=== PATIENT | female | born 1950 | race Caucasian/White ===

== ENCOUNTER → 2018-04-17 10:03 | Outpatient (CLI) | payer MEDICARE, OTHER, SELFPAY ==
--- NOTE | 2018-04-17 | DI.MG.S_ITS ---
BILATERAL DIGITAL SCREENING MAMMOGRAM 3D/2D WITH CAD: 04/17/2018 CLINICAL: Routine screening. Family history of breast cancer. Comparison is made to exams dated: 03/30/2017 mammogram, 02/26/2016 mammogram, and 01/23/2015 mammogram - [facility]. There are scattered fibroglandular elements in both breasts. Current study was also evaluated with a Computer Aided Detection (CAD) system. No significant masses, calcifications, or other findings are seen in either breast. There has been no significant interval change. IMPRESSION: NEGATIVE There is no mammographic evidence of malignancy. A 1 year screening mammogram is recommended. This exam was interpreted at Station ID: [id number]. NOTE: For mammograms, a report in lay terms will be sent to the patient. Approximately 15% of breast malignancies will not be visualized mammographically. In the management of a palpable breast mass, a negative mammogram must not discourage biopsy of a clinically suspicious lesion. Electronically Signed By: Lexis sousa/comfort:04/20/2018 07:16:10 letter sent: Normal Exam ACR BI-RADS Category 1: Negative [id number]
== END ==
PROVIDERS: Family Provider Nurse Practitioner; PCP Nurse Practitioner; Visit Provider Nurse Practitioner
DX: Z12.31 Encounter for screening mammogram for malignant neoplasm of breast (principal); Z80.3 Family history of malignant neoplasm of breast
CPT/HCPCS: 77063; 77067

== ENCOUNTER 2019-01-20 11:30 | Observation (INO) | payer MEDICARE, OTHER, SELFPAY ==
[2019-01-04 09:31] VITALS: BMI 44.7
[2019-01-19] VITALS (15 sets, daily range): BP systolic 105–156; BP diastolic 37–90; PULSE 57–70; RESP 13–20; TEMP 35.9–36.8; O2SAT 89–98; BMI 45.1
--- NOTE | 2019-01-19 06:00 | DI.RAD.S_ITS ---
PROCEDURE: XR KNEE RT 1TO2V INDICATIONS: total right knee TECHNIQUE: 2 view(s) of the knee acquired. COMPARISON: [facility], , XR KNEE OUTSIDE FILMS, 03/12/2007, 9:20. FINDINGS: Bones: Patient is status post knee joint arthroplasty. Hardware components are in expected positions. Visualized bony structures are intact. Please note that the lateral view is suboptimal to evaluate the positioning of the prosthetic components of the distal femur and proximal tibia. Soft tissues: Overlying postoperative changes are noted. Expected post surgical changes within the overlying soft tissues are present there is a soft tissue air, edema, and fluid. Skin julee are seen along the anterior margin of the knee. No unexpected radiopaque foreign bodies are apparent. IMPRESSION: Expected postsurgical changes related to a total right knee arthroplasty. Dictated by: Sudhir Lemus M.D. on 01/19/2019 at 9:46 Approved by: Sudhir Lemus M.D. on 01/19/2019 at 9:47
[2019-01-19] MEDS: ACETAMINOPHEN 325 MG TABLET 975 MG PO ×3 (07:16→20:23)
[2019-01-19] MEDS: LACTATED RINGERS 1,000 ML 42 ML IV ×2 (07:16→10:01)
[2019-01-19] MEDS: PREGABALIN 75 MG CAPSULE PO (07:17)
--- NOTE | 2019-01-19 07:18 | SUR.PREOP ---
pt has allergy to sulfa therefore celebrex not given
--- NOTE | 2019-01-19 07:45 | PM.PREOP ---
Pre-operative Note Interval Note History & Physical reviewed/Exam performed by Physician: Yes Changes to H&P: No
--- NOTE | 2019-01-19 07:48 | P.OP_ITS ---
Operative Date/Time/Diagnoses Date of procedure: 01/19/19 Time of procedure: 10:06 Pre-op diagnosis: Right knee osteoarthritis Morbid obesity Post-op diagnosis: same Procedure & Clinicians Procedure: Right total knee arthroplasty Same procedure as scheduled: Yes Indications: The patient presents today for total knee arthroplasty after failu re of conservative treatment. The nature of the procedure including the risks and benefits, alternatives, postoperative course and expected outcome were discussed and all questions answered. Consent was obtained. Operative site confirmed and marked. Surgeon: Daniel Norton Surveying Crew Rodman: Herson Chawla Anesthesia Type: General and Local Operative Notes Findings: Severe osteoarthritis with varus alignment. Closure Type: primary Specimen(s): none sent Prosthetic devices, grafts, tissues, transplants, or devices: Corea and Nephew Roxanne BCS: 6 femoral component, 5 tibial component, 9 mm BCS polyethylene tray and 35 x 9 mm round patella Applied: implant(s) Estimated Blood Loss (mL): 100 Blood products transfused: none Tourniquet time (min): 5 Procedure in detail: The patient was taken to the operative suite and placed under general anesthesia. The patient was given prophylactic antibiotics prior to surgery. The patient was also given tranexamic acid, 1 g, just prior to surgery for postoperative hemostasis. The lateral knee was prepped and the joint injected with 20 mL of 1% Lidocaine with epinephrine. The knee was then prepped and draped in usual sterile fashion. A tourniquet could not be placed due to the size of the patient's leg. A 15 cm anterior incision was made. Next a medial trivector arthrotomy was made. The extensor mechanism was marked to ensure accurate repair. Initial exposing dissection was carried out medially and laterally. The knee was then extended and the patellar thickness was measured and a cut made removing approximately 9 mm of bone. The patella was then sized and drilled. Some excess lateral bone was excised and the patellofemoral ligament released. The knee was then flexed and the intramedullary femoral guide keerthi placed. The distal femoral cut was made in 6? of valgus at the +0 position. The femoral size was measured and the appropriate cutting block was then placed and the anterior, posterior and chamfer cuts made. The extra medullary tibial alignment keerthi was then placed along the anatomic axis of the tibia approximating the normal slope. The guide was set to remove approximately 10 mm from the less affected lateral side. The proximal tibial cut was then made with an oscillating saw. All meniscus and bony debris was then removed. Flexion extension gaps were checked. The patient did have some medial tightness which was corrected with removal of extensive osteophytes, routine releases and some percutaneous release of the MCL with an 18 gauge needle. The soft tissues were then injected with a combination of 20 mL of half percent Marcaine with epinephrine and 20 mL of Exparel. The trial components were then placed. The knee went into full extension and flexion beyond 120?. There was good medial- lateral balance throughout motion. Patellar tracking was excellent. The trial components were removed and the knee was cleansed with Pulsavac irrigation and dried. We attempted to put a sterile tourniquet on. However there was more bleeding with the tourniquet so this was abandoned after approximately 5 min. The final components were cemented in with high viscosity vacuum mixed bone cement with antibiotics. The knee was held in extension and the patellar clamp until the cement had fully cured. The knee was irrigated and inspected for any further debris. The knee was then irrigated with dilute Betadine solution. The extensor mechanism was closed with 5 interrupted #1 Vicryl sutures in 90 degrees of flexion. The joint was then injected with a combination of 1 g of tranexamic acid and 20 mL of quarter percent Marcaine with epinephrine. The subcutaneous tissue was closed with 2-0 Vicryl. The skin was closed with julee and surgical adhesive. An Aquacell dressing and Kelby wrap were then applied. The patient tolerated the procedure well and was returned to recovery room in good condition. Complications: none Condition: stable Disposition: PACU Plan for aftercare: [facility] protocol for total knee arthroplasty.
[2019-01-19] MEDS: CEFAZOLIN 2 GM/100 ML FROZ.PIGGY IV (07:49)
[2019-01-19] MEDS: LIDOCAINE 1% W/EPI INJ 20 ML INJ (08:10)
[2019-01-19] MEDS: TRANEXAMIC ACID 1,000 MG VIAL 1000 MG INJ (08:13)
--- NOTE | 2019-01-19 08:29 | SUR.OPER ---
Supine on padded OR bed. Pillow under head, arms secured on padded armboards <90 degree abduction. Safety belt across torso. Non-operative leg secured with tape over blanket over lower leg. Operative leg secured in DeMayo/Trey positioner. Foam padded brace at thigh of operative leg.
[2019-01-19] MEDS: BUPIVACAINE 0.5% W/ EPI (PF) 20 ML, BUPIVACAINE LIPOSOME 266 MG, SODIUM CHLORIDE 0.9% 2... INJ (08:39)
[2019-01-19] MEDS: BUPIVACAINE 0.5% W/ EPI (PF) 10 ML, TRANEXAMIC ACID 1,000 MG, SODIUM CHLORIDE 0.9% 20 ML INJ (08:42)
[2019-01-19] MEDS: POVIDONE-IODINE 15 ML, SODIUM CHLORIDE 0.9% 250 ML TOP (08:43)
[2019-01-19] MEDS: LACTATED RINGERS 1,000 ML 125 ML IV ×2 (12:00→20:26)
[2019-01-19] MEDS: OXYCODONE IR 5 MG TABLET PO ×4 (14:07→22:54)
--- NOTE | 2019-01-19 14:32 | CM.MNRNOTE ---
Pt admitted with R.total knee. Sita dressing is present to r.knee, Pt has feeling down to her feet VSS. Last bp 100s/37. Will recheck soon. Pt is asymptomatic and denies dizziness. She has LR infusing through her iv and is tolerating this well. BS cta and pts o2 sat is 91-94%. PPX2 and pt visiting with her daughter and son in law.
--- NOTE | 2019-01-19 15:15 | PT.IIE ---
Current Diagnoses Bilateral primary osteoarthritis of knee (01/19/19) Surgery Performed Operation Date: 01/19/19 07:45 Actual Procedures p Total Knee Arthroplasty(Right) - Daniel Norton MD Surgical History (Last Updated 01/04/19 @ 10:18 by Miracle Hopkins RN) History of arthroscopy of both knees (Acute) Hx of bladder repair surgery (Acute) Hx of dilation and curettage (Acute) Hx of tubal ligation (Acute) Medical History (Last Updated 01/04/19 @ 10:21 by Miracle Hopkins RN) Cellulitis (Acute) Collar bone fracture (Acute ~1971) Depression (Acute) Edema (Acute) Fibromyalgia (Acute) GERD (gastroesophageal reflux disease) (Acute) H/O: hysterectomy (Acute) HTN (hypertension) (Acute) Herniated intervertebral disc of lumbar spine (Acute) Hyperlipidemia (Acute) Hypothyroidism (Acute) BLANCA on CPAP (Acute) Osteoarthritis (Acute) Pneumonia (Acute) Pre-diabetes (Acute) Sciatica (Acute) Physical Therapy Inpatient Evaluation/Re-Eval M1 PT/OT-IP Prior Functional Status Start: 01/19/19 16:18 Freq: NEEDED Status: Active Protocol: Document 01/19/19 15:15 AB (Rec: 01/19/19 16:40 AB [id number]) Medical Review Prior Functional Status Medical History Reviewed Yes Communication able to make needs known Mobility and Gait pt stated that she is independent with all mobilities and ambulation without AD indoors but uses SPC for outdoor ambulation Social History Household Members none Living Arrangements House Number of Floors (Floors) One Floor Number of Stairs To Enter/Railing? ramp to enter Home Environment High Toilet Walk in Shower Home Equipment Front Wheel Walker Four Wheel Walker Straight Cane Hand Held Shower Canine Enforcement Officer Grab Bars Near Toilet Grab Bars In Shower Employment Status Retired Additional Social History Comment pt able to drive M2 PT-IP Current Condition Start: 01/19/19 16:18 Freq: NEEDED Status: Active Protocol: Document 01/19/19 15:15 AB (Rec: 01/19/19 16:40 AB [id number]) Physical Therapy Current Condition Current Condition Evaluation Date 01/19/19 Treatment Diagnosis s/p R TKA; difficulty in walking Onset Date 01/19/19 Weight Bearing Status Weight Bearing Status Weight Bear as Tolerated M3 PT-IP Subjective Start: 01/19/19 16:18 Freq: NEEDED Status: Active Protocol: Document 01/19/19 15:15 AB (Rec: 01/19/19 16:40 AB [id number]) Subjective Physical Therapy Visit Type Type Initial Evaluation Visit Start Time 15:15 Visit Stop Time 15:56 Total Visit Minutes 41 Number of SURVEILLANCE AGENT Visits 0 Physical Therapy Visit Comments Patient Comments pt agreeable to do PT Therapy Pain Assessment Pain When Pain Assessed At Rest Pain Present Pain Present Pain Reported Location Right Knee Intensity 4 Scale Used Numeric (1 - 10) Pain Management Techniques Apply Cold Re-positioning Timing of Activity with Medications M4 PT-IP Mobility and Gait Start: 01/19/19 16:18 Freq: NEEDED Status: Active Protocol: Document 01/19/19 15:15 AB (Rec: 01/19/19 16:40 AB [id number]) PT-Bed Mobility Assessment Supine to Sit Supine to Sit Standby Assistance Sit to Supine Sit to Supine Minimal Assistance PT-Transfer Assessment Sit to and From Stand Sit to and from Stand Moderate Assistance 1 Person Assistance Equipment Transfer Assistive Device Gait Belt Front Wheeled Walker Orthotic/Prosthetic Devices or Brace: No Comments Mobility Comments BP supine: 141/72 DE 58 O2 sat 94%. pt completed supine to sit SBA. c/o dizziness with sitting but stated it got better after resting. BP: 125 /71 DE 68. pt completed sit to stand with 4 attempts mod A and cues. pt wanted to put her underwear on and assisted requring CGA to maintain standing balance using FWW for assist . pt c/o dizziness with standing. attemped to get BP but unable. instructed pt to take side steps towards head of bed and completed min A ~ 4 steps using FWW. pt completed sit to supine min A to assist with R LE elevation. positioned pt in bed. ice pack provided. call light and table placed within reach. Gait Assessment Gait Gait Assistance Required: Minimum Assistance Distance (Feet) 2 Able to Maintain Weight Bearing Status Yes During Gait Assistive Devices Assistive Device Gait Belt Front Wheeled Walker Orthotic/Prosthetic Devices or Brace: No Gait Deviations General Gait Pattern Antalgic Factors Limiting Gait Function Factors Limiting Gait Function Decreased Activity Tolerance Decreased Strength Limited Range of Motion Pain Poor Balance Comments Gait Comments able to take side steps towards HOB using FWW min A and cues PT-Balance Assessment Sitting Balance and Reactions Static Sitting Balance Ability Good Dynamic Sitting Balance Ability Good Standing Balance and Reactions Static Standing Balance Ability Fair Dynamic Standing Balance Ability Fair Device Used FWW M5 PT-IP Objective Assessments Start: 01/19/19 16:18 Freq: NEEDED Status: Active Protocol: Document 01/19/19 15:15 AB (Rec: 01/19/19 16:40 AB [id number]) Orientation Orientation/Cognition Level of Alertness Alert Orientation Name Age Birthday Month Date Year Day of Week Place Situation Safety Awareness Understands Safety Issues Memory Description No Deficits Noted Gross Range of Motion Lower Extremity ROM Assessment Bilaterally Impaired Strength Lower Extremity Strength Assessment Bilaterally Impaired Comments Strength Comments LLE: 4-/5 RLE: 4-/5 Coordination Assessment Gross Coordination Gross Coordination WNL Muscle Tone Muscle Tone WNL Yes M6 PT-IP Treatment Start: 01/19/19 16:18 Freq: NEEDED Status: Active Protocol: Document 01/19/19 15:15 AB (Rec: 01/19/19 16:40 AB [id number]) Physical Therapy Treatment Exercises Exercises Heel Slides Education Education Provided Precautions Weight Bearing Status Post-Op Packet Safety M7 PT-IP Assessment and Plan Start: 01/19/19 16:18 Freq: NEEDED Status: Active Protocol: Document 01/19/19 15:15 AB (Rec: 01/19/19 16:40 AB [id number]) PT Summary Assessment and Plan Potential Rehabilitation Potential Good Status of Condition at Evaluation Evolving Summary Impairments Pain ROM Strength Balance Coordination Sensation Tone Cognition Bed Mobility Transfers Gait Activity Tolerance Assessment Summary Pt unable to tolerate much activity today with c/o dizziness. will continue to assess mobiltiy and progress. Goals Bed Mobility Goal Standby Assistance Transfer Goal Standby Assistance Front Wheeled Walker Gait Goal Standby Assistance Front Wheel Walker Gait Distance 100 Days to Meet Goals 5 Frequency of Treatment Frequency Of Treatment Twice a Day Treatment Plan Physical Therapy Treatment Plan Bed Mobility Training Transfer Training Gait Training Therapeutic Exercise Balance Retraining Post Op Education Discharge Planning Hot or Cold Pack Neuromuscular Re-ed Coordination Retraining Manual Therapy Other Recommendations and Next Treatment ambulation Focus Recommendations To Nursing Amount of Assist Needed 1 Person Assist Discharge Recommendations PT Discharge Recommendations Home with Assistance Outpatient PT
[2019-01-19] MEDS: CEFAZOLIN VIAL 3 GM in SODIUM CHLORIDE 0.9% 100 ML 200 ML IV (17:16)
[2019-01-19] MEDS: NAPROXEN 250 MG TABLET 500 MG PO (20:23)
[2019-01-19] MEDS: ATORVASTATIN 10 MG TABLET PO (20:23)
[2019-01-19] MEDS: ASPIRIN EC 81 MG TABLET PO (20:23)
[2019-01-19] MEDS: PANTOPRAZOLE 20 MG TABLET PO (20:23)
[2019-01-20] MEDS: CEFAZOLIN VIAL 3 GM in SODIUM CHLORIDE 0.9% 100 ML 200 ML IV (00:26)
--- NOTE | 2019-01-20 01:54 | PC.NURSE ---
Addendum entered by Digna De Los Santos R.N. 01/20/19 07:14: Pt up to BSC at approx 0545. 2 PA w/fww and gait belt. PO analgesics effective overnight. No nausea. CPOX on all night. Bed alarm on for safety. Original Note: Assumed care of pt at 2300 on 01/20/19. Pt resting in bed during bedside hand-off. Personal CPAP on RA. Pt denies nausea at this time. Reports PO analgesics have been effective. IVF to PIV per orders. Sita drsg to R. Knee with dione wrap c/d/i. Tubing to Sita pinched orange light flashing on cartridge; straightened tube then green ok light starting flashing. Pt aware to keep tubing free of kinks. PPP. CMS+. Able to wiggle toes, denies numbness. Calf scd's on. Bed alarm on. Call light within reach.
[2019-01-20] MEDS: OXYCODONE IR 5 MG TABLET PO ×4 (03:05→12:05)
[2019-01-20 03:30] VITALS: BP 118/58; PULSE 65; RESP 20; TEMP 36.8; O2SAT 96
[2019-01-20] MEDS: PANTOPRAZOLE 20 MG TABLET PO (06:03)
[2019-01-20] MEDS: LACTATED RINGERS 1,000 ML 125 ML IV (06:03)
[2019-01-20] MEDS: LEVOTHYROXINE 100 MCG TABLET 200 MCG PO (06:03)
--- NOTE | 2019-01-20 07:53 | P.DS_ITS ---
History of Present Illness Date Patient Seen: 01/20/19 Time Patient Seen: 07:49 Chief complaint: right knee [id number] Narrative: Hospital day 2, postop day 1 following right total knee arthroplasty by Dr. Norton. Patient remained stable postoperatively. She did not get much rest and during the night. Pain controlled with oxycodone. Does have a layla dressing in place. Patient is desiring to go home today if possible. She does have physical therapy scheduled at [facility]. PT states that she is okay for home. Discharge Providers Date of admission: 01/19/19 06:10 Discharge Date: 01/20/19 Primary care physician: GUSTAVO Wood Consults: 01/19/19 11:53 Consult to Discharge Planning Routine Comment: Consult to Physical Therapy Evaluate & Treat Comment: Physician Instructions: postop TKA protocol Consult to Respiratory Therapy Evaluate & Treat Comment: Physician Instructions: Evaluate and treat Discharge provider: Ubaldo Abernathy PA-C Summary Discharge Diagnosis: Status post right total knee arthroplasty Hospital Course: Patient brought to hospital on 01/19/2019 for above-noted surgery. She remained stable postoperatively. Progressed with physical therapy. Ready for discharge home on postop day 1. She has a [facility] path patient. Status at Discharge Cognitive/behavioral status at discharge: Alert oriented no acute distress. Functional status at discharge: uses cane/walker Overall status at discharge: patient is progressing back to baseline Time Spent with Patient Less than 30 minutes Exam Vital Signs (past 8 hours): - 01/20/19 03:30 Temperature 98.2 F Pulse Rate 65 Respiratory Rate 20 Blood Pressure 118/58 L Pulse Oximetry 96 Oxygen Delivery Method Room Air Narrative Exam Narrative: Right leg. Layla dressing intact and good vacuum. No signs of drainage or inflammation. No calf pain or swelling. Pulses symmetrical. Objective Labs Result Diagrams: 01/20/19 06:25 Labs: Laboratory Results - last 24 hr 01/20/19 06:25 Hgb 11.0 L Hct 33.0 L Discharge Plan Discharge Plan Patient Disposition: Home Discharge comment: Discharged home today after cleared by physical therapy. If she is not cleared by PT will have her stay tonight and discharged tomorrow. She is scheduled to go to [place] [facility]. Discharge Med Rec/Prescriptions Prescriptions: New acetaminophen 325 mg Tablet 975 mg PO TID Qty: 30 RF: 0 aspirin 81 mg Tablet,Delayed Release (Dr/Ec) 81 mg PO BID Qty: 60 RF: 0 oxycodone 5 mg Tablet 5 mg PO Q3HR PRN (Reason: Pain, Moderate (4-6)) Qty: 30 RF: 0 Continued naproxen sodium [Aleve] 220 MG tablet 440 mg PO BID Qty: 0 RF: 0 multivitamin Tablet 1 cap PO QDAY Qty: 0 RF: 0 furosemide 40 mg Tablet 40 mg PO DAILY RF: 0 oxybutynin chloride 15 mg Tablet Extended Release 24hr 15 mg PO QAM RF: 0 atorvastatin 10 mg Tablet 10 mg PO BEDTIME RF: 0 sertraline 100 mg Tablet 200 mg PO QAM RF: 0 amlodipine 10 mg Tablet 10 mg PO DAILY RF: 0 levothyroxine 200 mcg Tablet 200 mcg PO DAILY RF: 0 bupropion HCl 150 mg Tablet Extended Release 24 Hr 150 mg PO QAM RF: 0 lansoprazole 15 mg Capsule,Delayed Release(Dr/Ec) 15 mg PO BID RF: 0 Discontinued aspirin 81 mg Tablet,Delayed Release (Dr/Ec) 81 mg PO QPM Qty: 0 RF: 0 Follow up/Referrals: Yasmine Shore ARNP [Primary Care Provider] - Provider Discharge Instructions Diet: Diet as Tolerated Activity: Ambulate as tolerated. Use walker as needed. Cold/Heat Therapy: Cold pack to knee as needed. Skin/Wound/Dressing Care Report to your healthcare provider any signs of infection, such as:: chills, fever, night sweats, increased pain, unusual drainage and unusual redness Dressing: Keep layla dressing in place until postop visit. Visit Report/Discharge Packet Instructions: DI for Knee Replacement Discharge Data Primary Care Provider: Yasmine Shore Attending Provider: Daniel Norton Admit Date/Time: 01/19/19 06:10 Quality VTE Deep Vein Thrombosis/Pulmonary Embolism Present on Admission: No
[2019-01-20 08:00] VITALS: BP 115/63; PULSE 79; RESP 18; TEMP 37; O2SAT 92
[2019-01-20] MEDS: SERTRALINE 50 MG TABLET 200 MG PO (08:58)
[2019-01-20] MEDS: OXYBUTYNIN 5 MG ER TAB 15 MG PO (08:59)
[2019-01-20] MEDS: ACETAMINOPHEN 325 MG TABLET 975 MG PO (09:00)
[2019-01-20] MEDS: NAPROXEN 250 MG TABLET 500 MG PO (09:00)
[2019-01-20] MEDS: AMLODIPINE 5 MG TABLET 10 MG PO (09:01)
[2019-01-20] MEDS: buPROPion XL 150 MG TAB PO (09:01)
[2019-01-20] MEDS: ASPIRIN EC 81 MG TABLET PO (09:01)
[2019-01-20] MEDS: FUROSEMIDE 40 MG TABLET PO (09:03)
--- NOTE | 2019-01-20 09:30 | PT.IPTN ---
Current Diagnoses Bilateral primary osteoarthritis of knee (01/19/19) Surgery Performed Operation Date: 01/19/19 07:45 Actual Procedures p Total Knee Arthroplasty(Right) - Daniel Norton MD Physical Therapy Treatment Note M2 PT-IP Current Condition Start: 01/19/19 16:18 Freq: NEEDED Status: Active Protocol: Document 01/19/19 15:15 AB (Rec: 01/19/19 16:40 AB [id number]) Physical Therapy Current Condition Current Condition Evaluation Date 01/19/19 Treatment Diagnosis s/p R TKA; difficulty in walking Onset Date 01/19/19 Weight Bearing Status Weight Bearing Status Weight Bear as Tolerated M3 PT-IP Subjective Start: 01/19/19 16:18 Freq: NEEDED Status: Active Protocol: Document 01/20/19 09:30 GGD (Rec: 01/20/19 12:22 GGD [id number]) Subjective Physical Therapy Visit Type Type Treatment Note Visit Start Time 09:00 Visit Stop Time 09:30 Total Visit Minutes 30 Number of WELFARE CASE WORKER Visits 1 Physical Therapy Visit Comments Patient Comments Pt states that she having pain . Therapy Pain Assessment Pain When Pain Assessed At Rest Pain Present Pain Present Pain Reported Location Right Knee Intensity 6 Scale Used Numeric (1 - 10) Pain Management Techniques Apply Cold Re-positioning M4 PT-IP Mobility and Gait Start: 01/19/19 16:18 Freq: NEEDED Status: Active Protocol: Document 01/20/19 09:30 GGD (Rec: 01/20/19 12:22 GGD [id number]) PT-Bed Mobility Assessment Supine to Sit Supine to Sit Minimal Assistance Sit to Supine Sit to Supine Minimal Assistance Scooting Scooting to Edge of Bed Standby Assistance PT-Transfer Assessment Sit to and From Stand Sit to and from Stand Minimal Assistance Use of Upper Extremities Equipment Transfer Assistive Device Gait Belt Front Wheeled Walker Orthotic/Prosthetic Devices or Brace: No Transfers Transfer Destination Bed Transfer Ability Level of Assist Minimal Assistance Comments Mobility Comments Min A with right LE. Sit to stand from higher bed. Gait Assessment Gait Gait Assistance Required: Minimum Assistance Distance (Feet) 10 Able to Maintain Weight Bearing Status Yes During Gait Assistive Devices Assistive Device Gait Belt Front Wheeled Walker Orthotic/Prosthetic Devices or Brace: No Gait Deviations General Gait Pattern Antalgic Decreased Stride Length Decreased Feet Clearance Step-to Gait Factors Limiting Gait Function Factors Limiting Gait Function Decreased Activity Tolerance Decreased Strength Limited Range of Motion Pain Poor Balance M5 PT-IP Objective Assessments Start: 01/19/19 16:18 Freq: NEEDED Status: Active Protocol: Document 01/19/19 15:15 AB (Rec: 01/19/19 16:40 AB [id number]) Orientation Orientation/Cognition Level of Alertness Alert Orientation Name Age Birthday Month Date Year Day of Week Place Situation Safety Awareness Understands Safety Issues Memory Description No Deficits Noted Gross Range of Motion Lower Extremity ROM Assessment Bilaterally Impaired Strength Lower Extremity Strength Assessment Bilaterally Impaired Comments Strength Comments LLE: 4-/5 RLE: 4-/5 Coordination Assessment Gross Coordination Gross Coordination WNL Muscle Tone Muscle Tone WNL Yes M6 PT-IP Treatment Start: 01/19/19 16:18 Freq: NEEDED Status: Active Protocol: Document 01/20/19 09:30 GGD (Rec: 01/20/19 12:22 GGD [id number]) Physical Therapy Treatment Exercises Exercises Ankle Pumps Quad Sets Heel Slides Seated Knee Flexion/Extension M7 PT-IP Assessment and Plan Start: 01/19/19 16:18 Freq: NEEDED Status: Active Protocol: Document 01/20/19 09:30 GGD (Rec: 01/20/19 12:22 GGD [id number]) PT Summary Assessment and Plan Summary Assessment Summary Pt improving slowly with mobility. She was limited by pain. She was able to progress gait with step to gait pattern. Will need to assess pain control with mobility and progress. Frequency of Treatment Frequency Of Treatment Twice a Day Treatment Plan Physical Therapy Treatment Plan Bed Mobility Training Transfer Training Gait Training Therapeutic Exercise Balance Retraining Post Op Education Discharge Planning Hot or Cold Pack Neuromuscular Re-ed Coordination Retraining Manual Therapy Other Recommendations and Next Treatment ambulation Focus Recommendations To Nursing Amount of Assist Needed 1 Person Assist Discharge Recommendations PT Discharge Recommendations Home with Assistance Outpatient PT
--- NOTE | 2019-01-20 13:15 | PT.IPTN ---
Current Diagnoses Bilateral primary osteoarthritis of knee (01/19/19) Surgery Performed Operation Date: 01/19/19 07:45 Actual Procedures p Total Knee Arthroplasty(Right) - Daniel Norton MD Physical Therapy Treatment Note M2 PT-IP Current Condition Start: 01/19/19 16:18 Freq: NEEDED Status: Active Protocol: Document 01/19/19 15:15 AB (Rec: 01/19/19 16:40 AB [id number]) Physical Therapy Current Condition Current Condition Evaluation Date 01/19/19 Treatment Diagnosis s/p R TKA; difficulty in walking Onset Date 01/19/19 Weight Bearing Status Weight Bearing Status Weight Bear as Tolerated M3 PT-IP Subjective Start: 01/19/19 16:18 Freq: NEEDED Status: Active Protocol: Document 01/20/19 13:15 GGD (Rec: 01/20/19 14:21 GGD [email or web address]) Subjective Physical Therapy Visit Type Type Treatment Note Visit Start Time 12:45 Visit Stop Time 13:15 Total Visit Minutes 30 Number of DIABETES EDUCATION COORDINATOR Visits 2 Physical Therapy Visit Comments Patient Comments Pt states that she is feeling better after ice on the knee. Therapy Pain Assessment Pain When Pain Assessed At Rest Pain Present Pain Present Pain Reported Location Right Knee Intensity 4 Scale Used Numeric (1 - 10) Pain Management Techniques Apply Cold Re-positioning Timing of Activity with Medications M4 PT-IP Mobility and Gait Start: 01/19/19 16:18 Freq: NEEDED Status: Active Protocol: Document 01/20/19 13:15 GGD (Rec: 01/20/19 14:21 GGD [email or web address]) PT-Bed Mobility Assessment Supine to Sit Supine to Sit Minimal Assistance Sit to Supine Sit to Supine Minimal Assistance Scooting Scooting to Edge of Bed Standby Assistance PT-Transfer Assessment Sit to and From Stand Sit to and from Stand Contact Guard Assistance 1 Person Assistance Use of Upper Extremities Equipment Transfer Assistive Device Gait Belt Front Wheeled Walker Orthotic/Prosthetic Devices or Brace: No Transfers Transfer Destination Bed Toilet Transfer Ability Level of Assist Minimal Assistance Comments Mobility Comments Min A with right LE. Sit to stand from higher bed. Gait Assessment Gait Gait Assistance Required: Contact Guard Assist Distance (Feet) 20 Assistive Devices Assistive Device Gait Belt Front Wheeled Walker Orthotic/Prosthetic Devices or Brace: No Gait Deviations General Gait Pattern Antalgic Decreased Stride Length Decreased Feet Clearance Step-to Gait Factors Limiting Gait Function Factors Limiting Gait Function Decreased Activity Tolerance Decreased Strength Limited Range of Motion Pain Poor Balance M5 PT-IP Objective Assessments Start: 01/19/19 16:18 Freq: NEEDED Status: Active Protocol: Document 01/19/19 15:15 AB (Rec: 01/19/19 16:40 AB [id number]) Orientation Orientation/Cognition Level of Alertness Alert Orientation Name Age Birthday Month Date Year Day of Week Place Situation Safety Awareness Understands Safety Issues Memory Description No Deficits Noted Gross Range of Motion Lower Extremity ROM Assessment Bilaterally Impaired Strength Lower Extremity Strength Assessment Bilaterally Impaired Comments Strength Comments LLE: 4-/5 RLE: 4-/5 Coordination Assessment Gross Coordination Gross Coordination WNL Muscle Tone Muscle Tone WNL Yes M6 PT-IP Treatment Start: 01/19/19 16:18 Freq: NEEDED Status: Active Protocol: Document 01/20/19 13:15 GGD (Rec: 01/20/19 14:21 GGD [email or web address]) Physical Therapy Treatment Exercises Exercises Ankle Pumps Quad Sets Heel Slides Seated Knee Flexion/Extension Education Education Provided Precautions Safety M7 PT-IP Assessment and Plan Start: 01/19/19 16:18 Freq: NEEDED Status: Active Protocol: Document 01/20/19 13:15 GGD (Rec: 01/20/19 14:21 GGD [email or web address]) PT Summary Assessment and Plan Summary Assessment Summary Pt improving with mobility. She had improved tolerance with weight bearing and gait. She needed assist with LE for bed mobility. Frequency of Treatment Frequency Of Treatment Twice a Day Treatment Plan Physical Therapy Treatment Plan Bed Mobility Training Transfer Training Gait Training Therapeutic Exercise Balance Retraining Post Op Education Discharge Planning Hot or Cold Pack Neuromuscular Re-ed Coordination Retraining Manual Therapy Other Recommendations and Next Treatment ambulation Focus Recommendations To Nursing Amount of Assist Needed 1 Person Assist Discharge Recommendations PT Discharge Recommendations Home with Assistance Outpatient PT
--- NOTE | 2019-01-20 13:38 | PC.NURSE ---
Pt reported pain level 4-5 throughout shift, without much improvement after providing scheduled and PRN pain medication. Provided ice packs and oxycodone dose at 1205, after which patient reported improved pain level of 2. She stated that the ice was seemed to be helping improve frequency and severity of the muscle spasms.
--- NOTE | 2019-01-20 13:57 | PC.NURSE ---
Agree with SN [facility], precepting this shift.
--- NOTE | 2019-01-20 14:24 | CM.DANOTE ---
Addendum entered by Bhargavi Ayala LPN 01/20/19 14:37: Checked in with pt now. Introduced self and role. Pt reports I am going home today after all. I did so much better in the afternoon PT session. She confirms her daughter will be with her. She has her own walker in the room. RN is finalizing the d/c paperwork now and she will go home as planned with OUTPT PT as per her plan. Original Note: Discharge Planning/Care Management DCP: assessment: case received, EMR reviewed and discussed in Team Rounds. Pt is a 68 year old female who admitted yesterday for a scheduled R TKA. Payer: Medicare and [facility] Medical Admission status: confirmed by NICK Abebe: [facility] [place] CANDI Abernathy did see pt very early this morning and wrote a d/c order and summary for today. A review of the d/c summary shows that he did say if pt is not cleared by PT today she will not go home until tomorrow. SLIDE MACHINE TENDER Jo is seeing pt, does note she is having pain and is not yet ready for the home setting. Pt does have OUTPT PT appt set up in [place] and her daughter Natasha Lewis will be staying with her during her recovery. P: will check in with pt and follow prn for any needs that may arise. CM Discharge Assessment Start: 01/20/19 14:23 Freq: Status: Active Protocol: Document 01/20/19 14:23 ITV (Rec: 01/20/19 14:24 ITV [id number]) Discharge Planning Assessment Advance Directives? Yes Advance Directives on File No History Provided By Patient Medical Record Prior Living Arrangements House Household Members none Whiteboard Updated in Patient Room with Yes name and ext. # of Music Store Manager Review Status In Process Next Review Type Continued Stay Review Pre-Anesthesia Assessment Start: 01/04/19 09:31 Freq: Status: Active Protocol: Document 01/04/19 09:31 CAB (Rec: 01/04/19 10:32 CAB [id number]) Pre-Anesthesia Assessment PAC Comment 10/10 Patient Also Known As (MARIE) Johnny Patient Information Reviewed Via Phone Assessment Assessment Completed With Patient Diagnostic Results BMP/CMP CBC EKG Primary Care Provider Yasmine Shore Seen Specialist in Last 12 Months Yes Specialist Seen Orthopedist Urologist Primary Language [employer] Manager Required No Height 175.26 cm Weight 137.438 kg Body Mass Index (BMI) 44.7 Hearing Ability Normal Visual Assist Glasses Dentition Type Partial- Lower Full- Upper Barriers to Learning None Other Aids Yes: CPAP Hx Anesthesia Reactions No Hx Family Anesthesia Reaction No Hx Malignant Hyperthermia No Hx Blood Transfusions No Anesthesia Review Requested No Manager Field No alcohol intake never Smoking Status Never smoker Substance Use Type does not use Pain Present Pain Reported Musculoskeletal Symptoms Abnormal Gait Difficulty Walking Joint Pain Muscle Cramps Muscle Weakness Numbness Radiating Pain into Limb Tremors History of Falling (Recent or History of Yes ) Patient is completely paralyzed or No completely immobile Prosthesis or Orthotic Device Cane Mental Status Oriented to own ability Is patient on oxygen? No Does patient have VILLALOBOS/SOB No Hx Sleep Apnea Yes CPAP/BIPAP use prescribed and used routinely Will Bring CPAP/BIPAP DOS Yes Currently Taking a Beta Rene No Can You Climb a Flight of Stairs Without No SOB Hx Chest Pain No Hx SOB No Hx Syncope or Dizziness No Anti-Coagulant Therapy No Has a Shank Faker No Cardiac Testing No Hx Pacemaker/ICD No Pacemaker Rep Required? No Cardiac Clearance Received Not Applicable Diet Type At Home Regular dysphagia No Bladder Pattern Frequency Incontinent Incontinent, Stress Urgency Urinary Catheter Present No Hx Urinary Self Catheterization No Diabetes No: Pt advised pre-diabetic Patient No Lactating No Hx Drug Resistant Organism No Presence of External or Internal Medical No Devices Have you traveled outside the [facility] in the last 30 days? Marital Status / Lives With none Prior Living Arrangements House Number of Floors (Floors) One Floor Number of Stairs To Enter/Railing? w/c ramp Support System Child/Children Does the Patient Have Assistance After Yes Surgery Patient Discharge Plan Description Return Home Comment Daughter will stay w/pt upon discharge to assist with care Feels Safe in Current Environment Yes Been Physically Hurt or Threatened By a No Person in Current Environment Do you have thoughts of harming yourself None or others? Are you currently considering suicide? No Do you have a plan to hurt yourself or No Plan others? Do You Have Any Spiritual Beliefs That No May Affect Your HC Choices? Do You Have Any Cultural Practices That No May Affect Your HC Choices? Comment Faith Who Can We Speak to About Patient's Care Family, friends Identifying Code for Release of Patient Declines to issue Information Health Care Proxy/Next of Kin Natasha Lewis (daughter) Health Care Proxy Emergency Contact Name Natasha Lewis (daughter) Emergency Contact Advance Directives? Yes Advance Directives on File No Requested Patient Bring Advanced Yes Directives DOS Power of Video Game Technician Yes Power of Video Game Technician Name Natasha Lewis (daughter) Power of Video Game Technician PAC Instructions Bring CPAP/BIPAP Do not shave/clip surgical site Durable medical equipment Medications to take/avoid Nasal antibiotic No ETOH/petroleum product on skin DOS NPO Post-op transportation Sensory aids Sturdy shoes/comfortable clothes Do not bring valuables and remove jewelry
--- NOTE | 2019-01-20 15:16 | PC.NURSE ---
pt. discharge packet given and reviewed. Understood w/o any questions. To daughters vehicle via wheelchair without incident.
== END 2019-01-20 14:30 | disposition home or self-care (01) ==
LOC: AC 15:17 → OR 15:52 → AC 15:54 → OR 15:54
PROVIDERS: Admitting Provider Orthopaedic Surgery; Family Provider Nurse Practitioner; PCP Nurse Practitioner; Visit Provider Orthopaedic Surgery
PROC: 0SRC0JZ Replacement of Right Knee Joint with Synthetic Substitute, Open Approach (ICD-10-PCS; CPT 27447; principal; 2019-01-19 07:45)
DX: M17.11 Unilateral primary osteoarthritis, right knee (principal); G47.33 Obstructive sleep apnea (adult) (pediatric); E03.9 Hypothyroidism, unspecified; I10 Essential (primary) hypertension; E78.5 Hyperlipidemia, unspecified; E66.9 Obesity, unspecified; Z68.33 Body mass index [BMI] 33.0-33.9, adult
CPT/HCPCS: 27447; 36415; 73560; 82962; 85014; 85018; 94762; 97116; 97162; 97530; C1776; G0378; C9290; J0690; J2250; J2274; J2405; J2704; J3010

== ENCOUNTER → 2019-04-23 08:45 | Outpatient (CLI) | payer MEDICARE, OTHER, SELFPAY ==
[2019-01-19 18:48] VITALS: BMI 45.1
--- NOTE | 2019-04-23 | DI.MG.S_ITS ---
BILATERAL DIGITAL SCREENING MAMMOGRAM 3D/2D WITH CAD: 04/23/2019 CLINICAL: Routine screening. Family history of breast cancer. Comparison is made to exams dated: 04/17/2018 mammogram, 02/26/2016 mammogram, and 03/30/2017 mammogram - [facility]. There are scattered fibroglandular elements in both breasts. Current study was also evaluated with a Computer Aided Detection (CAD) system. No significant masses, calcifications, or other findings are seen in either breast. There has been no significant interval change. IMPRESSION: NEGATIVE There is no mammographic evidence of malignancy. A 1 year screening mammogram is recommended. This exam was interpreted at Station ID: [id number]. NOTE: For mammograms, a report in lay terms will be sent to the patient. Approximately 15% of breast malignancies will not be visualized mammographically. In the management of a palpable breast mass, a negative mammogram must not discourage biopsy of a clinically suspicious lesion. Electronically Signed By: Parveen grant/comfort:04/25/2019 07:58:30 letter sent: Normal Exam ACR BI-RADS Category 1: Negative 3341F
== END ==
PROVIDERS: Family Provider Nurse Practitioner; PCP Nurse Practitioner; Visit Provider Nurse Practitioner
DX: Z12.31 Encounter for screening mammogram for malignant neoplasm of breast (principal); Z80.3 Family history of malignant neoplasm of breast
CPT/HCPCS: 77063; 77067

== ENCOUNTER → 2021-04-26 15:54 | Outpatient (CLI) | payer MEDICARE, OTHER, SELFPAY ==
[2019-01-19 18:48] VITALS: BMI 45.1
--- NOTE | 2021-04-26 15:55 | DI.MG.S_ITS ---
BILATERAL DIGITAL SCREENING MAMMOGRAM 3D/2D WITH CAD: 04/26/2021 CLINICAL: Routine screening. Family history of breast cancer. Comparison is made to exams dated: 04/23/2019 mammogram, 04/17/2018 mammogram, and 03/30/2017 mammogram - [facility]. There are scattered fibroglandular elements in both breasts. Current study was also evaluated with a Computer Aided Detection (CAD) system. No significant masses, calcifications, or other findings are seen in either breast. There has been no significant interval change. IMPRESSION: NEGATIVE There is no mammographic evidence of malignancy. A 1 year screening mammogram is recommended. This exam was interpreted at Station ID: [id number]. NOTE: For mammograms, a report in lay terms will be sent to the patient. Approximately 15% of breast malignancies will not be visualized mammographically. In the management of a palpable breast mass, a negative mammogram must not discourage biopsy of a clinically suspicious lesion. Electronically Signed By: Henrik morales/comfort:04/26/2021 16:59:51 letter sent: Normal Exam ACR BI-RADS Category 1: Negative 3341F
== END ==
PROVIDERS: Family Provider Nurse Practitioner; PCP Nurse Practitioner; Referring Provider Nurse Practitioner; Visit Provider Nurse Practitioner
DX: Z12.31 Encounter for screening mammogram for malignant neoplasm of breast (principal)
CPT/HCPCS: 77063; 77067

== ENCOUNTER → 2023-02-07 09:15 | Outpatient (CLI) | payer MEDICARE, OTHER, SELFPAY ==
[2019-01-19 18:48] VITALS: BMI 45.1
--- NOTE | 2023-02-07 09:17 | DI.MG.S_ITS ---
BILATERAL DIGITAL SCREENING MAMMOGRAM 3D/2D WITH CAD: 02/07/2023 CLINICAL: Routine screening. Family history of breast cancer. Comparison is made to exams dated: 04/26/2021 mammogram, 04/23/2019 mammogram, 04/17/2018 mammogram, and 03/30/2017 mammogram - [facility]. There are scattered areas of fibroglandular density in both breasts (category b / 25%-50% glandular tissue). Current study was also evaluated with a Computer Aided Detection (CAD) system. No significant masses, calcifications, or other findings are seen in either breast. There has been no significant interval change. IMPRESSION: NEGATIVE There is no mammographic evidence of malignancy. A 1 year screening mammogram is recommended. Based on the Tyrer Cuzick model (a risk assessment model) the patient's lifetime risk is 6.1% and her 10 year risk is 5.0%. According to the ACR, ACS, and NCCN guidelines, an annual breast MRI exam along with mammogram is recommended if the patient's lifetime risk is 20% or greater. This exam was interpreted at Station ID: [id number]. NOTE: For mammograms, a report in lay terms will be sent to the patient. Approximately 15% of breast malignancies will not be visualized mammographically. In the management of a palpable breast mass, a negative mammogram must not discourage biopsy of a clinically suspicious lesion. Electronically Signed By: Timmy gonzales/comfort:02/09/2023 08:19:16 letter sent: Normal Exam ACR BI-RADS Category 1: Negative 3341F
== END ==
PROVIDERS: Family Provider Nurse Practitioner; PCP Nurse Practitioner; Referring Provider Nurse Practitioner; Visit Provider Nurse Practitioner
DX: Z12.31 Encounter for screening mammogram for malignant neoplasm of breast (principal); Z80.3 Family history of malignant neoplasm of breast
CPT/HCPCS: 77063; 77067

== ENCOUNTER → 2023-10-27 14:09 | Outpatient (CLI) | payer MEDICARE, OTHER, SELFPAY ==
[2019-01-19 18:48] VITALS: BMI 45.1
== END ==
PROVIDERS: Family Provider Nurse Practitioner; PCP Nurse Practitioner; Referring Provider Orthopaedic Surgery Foot and Ankle Surgery; Visit Provider Orthopaedic Surgery Foot and Ankle Surgery
DX: Z01.818 Encounter for other preprocedural examination (principal)
CPT/HCPCS: 93005

== ENCOUNTER 2023-12-09 07:27 | Day surgery (SDC) | payer MEDICARE, OTHER, SELFPAY ==
[2019-01-19 18:48] VITALS: BMI 45.1
[2023-12-01 09:55] VITALS: BMI 38.4
[2023-12-08 16:00] VITALS: BP 131/55; PULSE 79; RESP 18; TEMP 36.8; O2SAT 98
[2023-12-09] VITALS (11 sets, daily range): BP systolic 120–157; BP diastolic 51–85; PULSE 64–74; RESP 13–20; TEMP 35.9–36.8; O2SAT 92–98; BMI 39.0; BMI 41.2
--- NOTE | 2023-12-09 06:00 | DI.RAD.S_ITS ---
PROCEDURE: XR KNEE LT 1TO2V INDICATIONS: TKA TECHNIQUE: 2 view(s) of the knee acquired. COMPARISON: [facility] [place], CR, XR KNEE 4+ VIEWS LEFT, 11/20/2022, 16:51. FINDINGS: Bones: Patient is status post knee joint arthroplasty. Hardware components are in expected positions. Visualized bony structures are intact. Soft tissues: Overlying postoperative changes are noted. IMPRESSION: Expected postsurgical changes related to total knee arthroplasty. Dictated by: Franny Isidro M.D. on 12/09/2023 at 12:46 Approved by: Franny Isidro M.D. on 12/09/2023 at 12:46
[2023-12-09] MEDS: LACTATED RINGERS 1,000 ML 42 ML IV ×3 (07:55→12:28)
[2023-12-09] MEDS: CELECOXIB 200 MG CAPSULE 400 MG PO (08:14)
--- NOTE | 2023-12-09 08:32 | PM.PREOP ---
Pre-operative Note Interval Note History & Physical reviewed/Exam performed by Physician: Yes Changes to H&P: No
--- NOTE | 2023-12-09 08:37 | SUR.OPER ---
Supine on padded OR bed. Pillow under head, arms secured on padded armboards <90 degree abduction. Safety belt across torso. Non-operative leg secured with tape over blanket over lower leg. Operative leg secured in Trey positioner. Foam padded brace at thigh of operative leg.
--- NOTE | 2023-12-09 08:43 | PM.OP.1 ---
Operative Date/Time/Diagnoses Date of procedure: 12/09/23 Time of procedure: 09:20 Pre-op diagnosis: Knee arthritis left, morbid obesity BMI 39 Post-op diagnosis: same Procedure & Clinicians Procedure: 1. Left total knee arthroplasty CPT code 31134 Same procedure as scheduled: Yes Indications: The patient is a 73 with end-stage left [id number] knee arthritis. The patient has a significant left knee arthritis. They have failed conservative treatment with activity modifications, injections, physical therapy and bracing. They has been indicated for total knee replacement. The risks and benefits of the procedure have been discussed with the patient even opportunity to ask questions. The risks of surgery include but are not limited to infection, malunion, nonunion, fracture, loosening, persistence of pain, damage to nerves and blood vessels, need for additional procedures, DVT, PE, cardiopulmonary complications and . The patient expressed a thorough understanding of the risks and benefits of surgery and has elected to proceed. Consent was signed in the office. During the operation the services of physician operating room surgical technologist were medically indicated and necessary to provide the exposure of the operative site for the surgical procedure and to maintain the limb in a proper position to carry out the procedure safely and efficiently. Without a qualified fundraising assistant being present this would extend the operative procedure and would have made the procedure more technically difficult to perform. The operating room surgical technologist was medically necessary for the proper positioning, retraction and manipulation of the limb, proper exposure, and manipulation of the tissue for implantation implants and closure. Surgeon: Lizette Bhatt Ticket Machine Operator: Jairo Antony Anesthesia Type: General, Spinal, Peripheral nerve block and Local Operative Notes Findings: End-stage tricompartmental varus arthritis full-thickness loss. Large marginal osteophytes, degenerative meniscal tearing. Closure Type: primary Prosthetic devices, grafts, tissues, transplants, or devices: Corea and nephew journey bi CS cobalt chromium Femur 5 Tibia 5 Poly 11 mm Patella 35 x 9 mm Estimated Blood Loss (mL): 100 Blood products transfused: none Tourniquet time (min): 100 Procedure in detail: Patient was seen in the preoperative area where the patient and site of surgery were identified in the operative knee was marked informed consent confirmed. This was the left knee. Patient received the appropriate preoperative antibiotics this was weight based and was 3 g of Ancef. She also received are other standard preoperative total knee arthroplasty preoperative medications and was taken to the operating room placed on operating table in the supine position. Spinal anesthetic were administered. The operative extremity was then prepped and draped in the standard sterile fashion with a nonsterile tourniquet high on the thigh. Patient was placed on the green foam bolsters. A lateral post was placed at the level of the proximal thigh /trochanter area as a lateral post. Formal time-out procedure was performed confirming the patient's side and site of surgery and administration of appropriate preoperative antibiotics and implants were in the room accounted for. All were in agreement. Patient received a preoperative dose of tranexamic acid and then a 2nd dose at tourniquet release Patient was prepped and draped in the standard sterile fashion and the foot was placed into the leg flores. This was taken into high flexion and the incision was marked out over the anterior knee to the level of the medial tubercle tubercle. The Esmarch was then used for exsanguination and the tourniquet was inflated to 250 mmHg. Was made through the skin and subcutaneous tissue in high flexion this was then brought down into 30? of flexion for the medial parapatellar arthrotomy. A marker pen was used to berta the arthrotomy site for later repair. Joint fluid was evacuated. The anterior osteophytes and soft tissues were removed. Routine medial release was initially made along the medial proximal tibia with Bovie. The patella was 1st cut using the saw sized and prepped and then subluxed throughout the case and protected. The leg was then taken into extension and the patella was everted and the patella was cut to accommodate the patellar button. This was sized to a 35 mm button for a 9 mm thickness to recreate the original dimensions of the patella. Poly was removed and the protector replaced and the patella was subluxed and the knee was taken back up into flexion and attention was returned to the femur. Then the rotational landmarks of Whitesides line and the trans epicondylar axis were marked on the femur with electrocautery. ACL and PCL were released. Then the Cori robotic pins were placed into the femur and tibia and the arrays set up. The through incision tibia block and array set up was utilized for this patient. Landmarks were established and the robotic planning was commenced. Plan was developed and improved and adjusted as necessary to create a balanced knee in flexion and extension without over-correction. Plan included external rotation 4? which recreated natural alignment well. Once the plan was satisfactory, the bur was used to remove the distal femur then the 5 in 1 cutting block was applied complete the femur cuts. Attention was then turned to the tibia and the tibial resection was made in accordance with the robotic planning. The trials were placed. And the femoral notch was cut a standard fashion using Reamer then slap hammer. The knee was trialed and the checked. Knee was balanced in flexion extension. Range of motion 0-120 degrees was obtained.terminal flexion was limited in this patient due to severe thigh calf impingement due to body habitus. The rotation tibial trial was marked Bovie on the bone and checked with a long keerthi. The tibia was then finished with a drill and flange cut and then The trial implants were removed. Then in extension the posterior capsule was injected with a mixture of 40 mL of 0.25% Marcaine and 20 mL of Exparel care to avoid excessive injection posterior laterally. The remainder of this was saved for the capsule and subcutaneous tissue and placed during cement curing. The wound and bone was irrigated with pulsatile lavage. This was then dried with a sponge. The components were verified and opened and the cement was mixed. Cement was applied to the components and then to the bone then the tibia was cemented in place 1st followed by the femur then the patella. Excess cement was removed. With care looking around the back of the knee. Remainder of the injection was injected around the capsule. trial poly was placed back in the leg was placed into extension for the patellar cementing. After this was cured approximately 15 minutes later and the dilute Betadine solution was placed for at least 3 minutes in the wound this was then irrigated out and the final poly was placed. This was a 11 mm poly. Excellent range of motion and stability and normal patellar tracking were obtained. The tourniquet was released hemostasis was achieved. Final 1g of tranexamic acid was given IV at the time of tourniquet release. The capsule was closed with 1. Ethibond suture. Followed by a running Quill stitch. Subcutaneous layer was closed with 3-0 Vicryl suture. Skin was closed with a running V lock suture Stratafix Monocryl type suture and Dermabond. An layla dressing was placed . An Kelby wrap was applied. Anesthetic was terminated the patient was woken from anesthesia and taken to recovery room in good condition. There no immediate complications from this procedure. The patient will be maintained on a standard total knee replacement protocol with weight-bearing as tolerated. Complications: none Post-operative Condition: stable Disposition: PACU Plan for aftercare: Weightbear as tolerated range of motion as tolerated. Patient will stay overnight in the hospital work with physical therapy and plan to discharge home likely postop day 1. The patient has her daughter available at home to help her. DVT prophylaxis will be aspirin 81 mg b.i.d. x6 weeks. The patient was already issued her postoperative medications from the clinic. These included oxycodone, Toradol and aspirin. She also has Tylenol and a stool softener she can take.
[2023-12-09] MEDS: CEFAZOLIN VIAL 3 GM in SODIUM CHLORIDE 0.9% 100 ML IV ×2 (08:44→18:17)
[2023-12-09] MEDS: TRANEXAMIC ACID 1,000 MG VIAL 1000 MG INJ ×2 (09:14→11:29)
[2023-12-09] MEDS: BUPIVACAINE 0.25% (PF) 30 ML, EPINEPHrine 0.15 MG INJ (09:40)
[2023-12-09] MEDS: BUPIVACAINE LIPOSOME 266 MG/20 ML VIAL INJ (09:40)
--- NOTE | 2023-12-09 09:43 | SUR.OPER ---
Supine on padded OR bed. Pillow under head, arms secured on padded armboards <90 degree abduction. Safety belt across torso. Non-operative leg secured with tape over blanket over lower leg. Operative leg secured in DeMayo/Trey/Nathe positioner. Foam padded brace at thigh of operative leg.
[2023-12-09] MEDS: OXYCODONE IR 5 MG TABLET PO ×3 (12:45→19:00)
--- NOTE | 2023-12-09 12:50 | SUR.PHASEI ---
Report called to
--- NOTE | 2023-12-09 13:10 | SUR.PHASEI ---
Patient transferred to the floor with her belongings bag, CPAP and dentures. Report given to Olivia. VS stable. IV patent. Left knee dressing CDI.
--- NOTE | 2023-12-09 13:20 | PT.IIE ---
Current Diagnoses Bilateral primary osteoarthritis of knee (12/09/23) Unilateral primary osteoarthritis, left knee (12/09/23) Other specified joint disorders, unspecified knee (12/09/23) Body mass index [BMI] 39.0-39.9, adult (12/09/23) Surgery Performed Operation Date: 12/09/23 08:45 Actual Procedures p Total Knee Arthroplasty - Robot(Left) - Lizette Bhatt MD Surgical History (Last Updated 12/01/23 @ 10:11 by Miracle Hopkins RN) H/O: hysterectomy History of arthroscopy of both knees History of total right knee replacement (01/19/19) Hx of bilateral cataract extraction (2022) Hx of bladder repair surgery Hx of dilation and curettage Hx of tubal ligation Medical History (Last Updated 01/29/20 @ 16:28 by GUSTAVO Velasquez) Cellulitis Collar bone fracture (~1971) Depression Edema Fibromyalgia GERD (gastroesophageal reflux disease) Herniated intervertebral disc of lumbar spine HTN (hypertension) Hyperlipidemia Hypothyroidism Morbid obesity with body mass index (BMI) of 40.0 to 49.9 Obstructive sleep apnea Osteoarthritis Pneumonia Pre-diabetes Sciatica Physical Therapy Inpatient Evaluation/Re-Eval M1 PT/OT-IP Prior Functional Status Start: 12/09/23 14:49 Freq: NEEDED Status: Active Protocol: Document 12/09/23 13:20 AB (Rec: 12/09/23 15:04 AB [id number]) Medical Review Prior Functional Status Medical History Reviewed Yes Communication able to make needs known Mobility and Gait pt stated that she was modified independent with all mobilities and ambulation wihtout AD but uses a SPC for outdoor mobility Social History Household Members none Living Arrangements House Number of Floors (Floors) One Floor Number of Stairs To Enter/Railing? ramp to enter Home Environment High Toilet,Walk in Shower, Ramp Home Equipment Front Wheel Walker,Four Wheel Walker,Straight Cane,Hand Held Shower,Collections Associate,Grab Bars Near Toilet,Grab Bars In Shower Additional Social History Comment pt's daughter plans to stay with her for ~ 10 day to assist M2 PT-IP Current Condition Start: 12/09/23 14:49 Freq: NEEDED Status: Active Protocol: Document 12/09/23 13:20 AB (Rec: 12/09/23 15:04 AB [id number]) Physical Therapy Current Condition Current Condition Evaluation Date 12/09/23 Treatment Diagnosis s/p L TKA; difficulty in walking Onset Date 12/09/23 M3 PT-IP Subjective Start: 12/09/23 14:49 Freq: NEEDED Status: Active Protocol: Document 12/09/23 13:20 AB (Rec: 12/09/23 15:04 [id number]) Subjective Physical Therapy Visit Type Type Initial Evaluation Visit Start Time 13:20 Visit Stop Time 14:16 Total Visit Minutes 54 Number of DEXIGRAPH OPERATOR Visits 0 Physical Therapy Visit Comments Patient Comments c/o increase pain but agreed to do PT after pain meds were provided by nurse Therapy Pain Assessment Pain When Pain Assessed At Rest Pain Present Pain Present Pain Reported Location left knee Intensity 10 Scale Used Numeric (0 - 10) Pain Management Techniques Apply Cold,Distraction, Modification of Treatment,Re- positioning,Timing of Activity with Medications M4 PT-IP Mobility and Gait Start: 12/09/23 14:49 Freq: NEEDED Status: Active Protocol: Document 12/09/23 13:20 AB (Rec: 12/09/23 15:04 [id number]) PT-Bed Mobility Assessment Supine to Sit Supine to Sit Minimal Assistance Sit to Supine Sit to Supine Maximum Assistance,1 Person Assistance,2 Person Assistance ,Head of Bed Elevated,Bedrails Scooting Scooting to Edge of Bed Minimal Assistance PT-Transfer Assessment Sit to and From Stand Sit to and from Stand Maximum Assistance,1 Person Assistance,2 Person Assistance ,Use of Upper Extremities Equipment Transfer Assistive Device Gait Belt,Front Wheeled Walker Orthotic/Prosthetic Devices or Brace: No Transfers Transfer Destination Bed,Bedside Commode Transfer Technique Stand Step Pivot Transfer Ability Level of Assist Maximum Assistance,1 Person Assistance,2 Person Assistance ,Use of Upper Extremities Comments Mobility Comments pt supine in bed. initially refusing PT due to c/o increase L knee pain. talked with nurse and stated that she can give pt IV pain meds and will ask pt if willing to do PT afterwards. pt agreed. obtained PLOF and home set up. daughter in room and confirmed info provided by pt. post-op folder provided to pt and reviewed contents. pt completed supine heel slides on BLE prior to mobiltiy. BP in supine: 148/66. pt completed supine to sit min A and cues. pt used bed rail to assist. pt was able to sit on EOB SBA. completed sit to stand max A x 2 and max cues. pt then stated that she is voiding and unable to control. instructed pt to sit back on EOB. positioned bedside commode next to pt. completed sit to stand again max A x1-2 and max cues and completed step transfer to bedside commode max A x 2 and max cues for L quads activation. Nurse in room to assist. pt completed sit to stand from the bedside commode max a x 1-2 and max cues. able to maintain standing max A using FWW for support while nurse assisted pt with hygiene care and brief management. pt able to do step transfer back to EOB max A and max cues . completed sit to supine max A x 2 and max cues. positioned pt in bed. call light and table placed within reach. caregiver training set up with pt's daughter to come in at 9 am tomorrow. PT-Balance Assessment Sitting Balance and Reactions Static Sitting Balance Ability Good Dynamic Sitting Balance Ability Good Standing Balance and Reactions Static Standing Balance Ability Poor Dynamic Standing Balance Ability Poor Device Used FWW M5 PT-IP Objective Assessments Start: 12/09/23 14:49 Freq: NEEDED Status: Active Protocol: Document 12/09/23 13:20 AB (Rec: 12/09/23 15:04 AB [id number]) Orientation Orientation/Cognition Level of Alertness Alert Orientation Name,Place,Situation Language Function Ability No Deficits Noted Safety Awareness Decreased Safety Awareness Memory Description No Deficits Noted Comments pt initially sleepy Gross Range of Motion Lower Extremity ROM Assessment Left Impaired Impairments L knee flexion: ~ 40 deg with increase guarding during PROM Strength Lower Extremity Strength Assessment Left Impaired Hip 3-/5 Knee 3+/5 Comments Strength Comments RLE: 4-/5 Muscle Tone Muscle Tone WNL Yes M6 PT-IP Treatment Start: 12/09/23 14:49 Freq: NEEDED Status: Active Protocol: Document 12/09/23 13:20 AB (Rec: 12/09/23 15:04 AB [id number]) Physical Therapy Treatment Education Education Provided Precautions,Weight Bearing Status,Post-Op Packet,Safety M7 PT-IP Assessment and Plan Start: 12/09/23 14:49 Freq: NEEDED Status: Active Protocol: Document 12/09/23 13:20 AB (Rec: 12/09/23 15:04 AB [id number]) PT Summary Assessment and Plan Potential Rehabilitation Potential Fair Status of Condition at Evaluation Evolving Summary Impairments Pain,ROM,Strength,Balance, Coordination,Sensation,Tone, Cognition,Bed Mobility, Transfers,Gait,Activity Tolerance Assessment Summary pt is a 73 y/o F s/p L TKA POD 0. pt is WBAT on LLE. pt requiring max A x 1-2 with mobility using FWW at this time but will possibly improve during hospital stay. pt with c/o increase L knee pain of 10/10 affecting mobility level . caregiver training set up tomorrow at 9 am. will continue to assess progress. Goals Bed Mobility Goal Standby Assistance Transfer Goal Standby Assistance,Front Wheeled Walker Gait Goal Standby Assistance,Front Wheel Walker Gait Distance 100 Other Goals improve ambulation using LRAD ~ 250 ft SBA Days to Meet Goals 5 Frequency of Treatment Frequency Of Treatment Twice a Day Treatment Plan Physical Therapy Treatment Plan Bed Mobility Training,Transfer Training,Gait Training, Therapeutic Exercise,Balance Retraining,Post Op Education, Discharge Planning,Hot or Cold Pack,Neuromuscular Re-ed, Coordination Retraining,Manual Therapy Weight Bearing Status Weight Bearing Status Weight Bear as Tolerated Allowed Weight Bearing Amount (enter % LLE WBAT or #) (%) Recommendations To Nursing Amount of Assist Needed 2 Person Assist Discharge Recommendations PT Discharge Recommendations Home with 15/06 Assist Available,Home Health Transportation Needs at Discharge Private Vehicle,Wheelchair/ Cabulance
[2023-12-09] MEDS: KETOROLAC 30 MG/ML VIAL IV ×2 (13:30→20:22)
[2023-12-09] MEDS: HYDROMORPHONE 0.5 MG INJ IV (13:31)
[2023-12-09] MEDS: LACTATED RINGERS 1,000 ML 100 ML IV (13:35)
--- NOTE | 2023-12-09 15:08 | OT.IPNOTE ---
Attempted to see pt for OT eval and pt states to sleepy and prefers to be seen tomorrow. Able to go over OT needs with her family. NO charge and to see pt tomorrow.
[2023-12-09] MEDS: ACETAMINOPHEN 325 MG TABLET 650 MG PO (18:16)
[2023-12-09] MEDS: DOCUSATE 100 MG CAPSULE PO (20:21)
[2023-12-09] MEDS: ATORVASTATIN 20 MG TABLET 40 MG PO (20:22)
[2023-12-09] MEDS: PANTOPRAZOLE DR 40 MG TABLET PO (20:22)
[2023-12-09] MEDS: ASPIRIN EC 81 MG TABLET PO (20:22)
[2023-12-10] VITALS: BP 133/61; PULSE 69; RESP 16; TEMP 36.6; O2SAT 94
[2023-12-10] MEDS: ACETAMINOPHEN 325 MG TABLET 650 MG PO ×2 (01:55→07:35)
[2023-12-10] MEDS: OXYCODONE IR 5 MG TABLET PO ×3 (01:55→08:05)
[2023-12-10] MEDS: CEFAZOLIN VIAL 3 GM in SODIUM CHLORIDE 0.9% 100 ML IV (01:58)
[2023-12-10 04:30] VITALS: BP 134/48; PULSE 67; RESP 18; TEMP 36.2; O2SAT 94
[2023-12-10] MEDS: KETOROLAC 30 MG/ML VIAL IV (05:06)
[2023-12-10 05:30] LABS: Hematocrit 35.5 % (36-46); Hemoglobin 11.9 g/dL (12.0-16.0)
--- NOTE | 2023-12-10 07:34 | PM.DS.1 ---
History of Present Illness History of Present Illness Date Patient Seen: 12/10/23 Time Patient Seen: 07:00 Chief complaint: OPB Narrative: Patient is POD#1 s/p Left total knee arthroplasty by Dr. Bhatt. Patient reports she is overall doing well, having mild-moderate pain still but states it has been well controlled with oral Acetaminophen and Oxycodone as well as ice. Has not been evaluated by PT yet today but states she has been able to get up (with assistance) and use the walker in her room to use the bathroom, urinating on her own without issue. Has walker at home for post-op use as well. Has post-op outpaitnet PT appts set up with [facility] in [place]. Would like to be d/c today, she states her daughter will be staying with her at home to help with her recovery in her immediate post-op period. Deneis chest pain, SOB, fever, chills, nausea. Discharge Providers Provider Discharge Date: 12/10/23 Primary care physician: GUSTAVO Wood Consults: 12/09/23 12:59 Consult to Discharge Planning Routine Comment: Consult to Occupational Therapy Evaluate & Treat Comment: Physician Instructions: Evaluate and treat Consult to Physical Therapy Evaluate & Treat Comment: Physician Instructions: postop TKA protocol Discharge provider: Colette Angulo PA-C Summary Hospital Course Discharge Diagnosis: left knee osteoarthritis s/p left total knee arthroplasty Hospital Course: Uncomplicated hospital course Exam Vital Signs (past 8 hours): - 12/10/23 00:00 12/10/23 04:30 Temperature 97.9 F 97.2 F L Pulse Rate 69 67 Respiratory Rate 16 18 Blood Pressure 133/61 134/48 L Pulse Oximetry 94 94 Oxygen Flow Rate 0 0 Oxygen Delivery Method Room Air Oxygen Flow Rate 0 Const General: cooperative Skin General: no rashes or lesions noted Other: functioning layla dressing intact over left knee with scant dry blood. Neuro General: patient alert, patient awake and patient oriented x3 Other: Sensation intact to all toes equally Extrem Other: 5/5 strength with DF, PF, EHL. Calves soft and compressible bilaterally without erythema. Psych Attitude: cooperative Objective Labs 12/10/23 04:52 Labs: Laboratory Results - last 24 hr 12/10/23 04:52 Hgb 11.9 L Hct 35.5 L PFSH Medical History (Updated 01/29/20 @ 16:28 by GUSTAVO Velasquez) Morbid obesity with body mass index (BMI) of 40.0 to 49.9 Obstructive sleep apnea Sciatica Depression Cellulitis Osteoarthritis Herniated intervertebral disc of lumbar spine Collar bone fracture (~1971) Pre-diabetes Hypothyroidism GERD (gastroesophageal reflux disease) Edema Hyperlipidemia HTN (hypertension) Pneumonia Fibromyalgia Surgical History (Updated 12/01/23 @ 10:11 by Miracle Hopkins RN) Hx of bilateral cataract extraction (2022) History of total right knee replacement (01/19/19) History of arthroscopy of both knees Hx of bladder repair surgery Hx of dilation and curettage Hx of tubal ligation H/O: hysterectomy Social History household members: none Smoking Status: Never smoker alcohol intake: never Discharge Assessment & Plan Assessment and Plan Assessment: left knee osteoarthritis s/p left total knee arthroplasty Plan of Treatment: -Weight bearing as tolerated to left leg, continue to work on mobilization w/ outpatient PT. -Continue ASA BID for DVT prophylaxis -Keep dressing clean and dry -Continue multimodal pain management, post-op Rx already sent to patients retail pharmacy -Okay to d/c to home today pending PT evaluation/approval. Discharge Plan Discharge Plan Patient Disposition: Home Provider Discharge Comment: Follow up at [facility] in 2 weeks for post-op appt (12/18/23) Discharge orders & Medications Discharge Orders: Discharge (Order); Ordered 12/10/23 Ordered By: Colette Angulo Prescriptions: New acetaminophen 325 mg Tablet 650 mg PO Q6H Qty: 90 0RF aspirin 81 mg Tablet,Delayed Release (Dr/Ec) 81 mg PO BID Qty: 90 0RF oxycodone 5 mg Tablet 5 mg PO Q4-6H PRN (Reason: Pain, Moderate (4-6)) Qty: 42 0RF Continued multivitamin Tablet 1 cap PO QDAY Qty: 0 pantoprazole 40 mg Tablet,Delayed Release (Dr/Ec) 40 mg PO BID acetaminophen 325 mg tablet 975 mg PO TID PRN (Reason: Pain) furosemide 40 mg Tablet 40 mg PO DAILY oxybutynin chloride 15 mg Tablet Extended Release 24hr 15 mg PO QAM atorvastatin 10 mg Tablet 40 mg PO BEDTIME sertraline 100 mg Tablet 200 mg PO QAM amlodipine 10 mg Tablet 10 mg PO DAILY levothyroxine 200 mcg Tablet 200 mcg PO DAILY bupropion HCl 150 mg Tablet Extended Release 24 Hr 150 mg PO QAM Follow up/Referrals: Yasmine Shore ARNP [Primary Care Provider] - Diet/Activity/Treatments Diet: Diet as Tolerated Activity: Weight bearing as tolerated. Work on knee range of motion as tolerated. Cold/Heat Therapy: Ice as needed to the knee for pain Skin/Wound/Dressing Care Report to your healthcare provider any signs of infection, such as:: chills, fever, night sweats, unusual drainage and unusual redness Dressing: Keep dressing clean and dry. If dressing becomes saturated or dirty okay to remove and replace with clean and dry gauze. Keep dressing in place until 2 week post-op appointment at [facility]. Visit Report/Discharge Packet Instructions: DI for Knee Replacement Stand Alone Forms: Patient Portal/API Discharge Data Primary Care Provider: Yasmine Shore Attending Provider: Lizette Bhatt VTE Deep Vein Thrombosis/Pulmonary Embolism Present on Admission: No
--- NOTE | 2023-12-10 07:54 | CM.DANOTE ---
Initial DCP Assessment Visit Note Reviewed EMR for pt's medical status and updates. Met with pt at bedside to introduce self and role, pt found to be awake/appearing comfortable, able to participated in assessment. Payor: Medicare Attending: Dr. Bhatt Pt is a 73 year-old F placed in a [facility] bed following her total L-knee arthroplasty completed yesterday. Pt has a PMH of bilateral end stage knee arthritis, had a total R-knee arthroplasty in 2021, and had been experiencing worsening L-knee pain limiting her mobility and ADL's. Pt uses a cane at baseline. Plan is for pt to work with PT/OT this morning, then dtr will transport her home. No further DCP needs identified at this time. Discharge Planning/Care Management CM Discharge Assessment Start: 12/10/23 07:51 Freq: Status: Active Protocol: Document 12/10/23 07:52 DPL (Rec: 12/10/23 07:54 DPL [id number]) Discharge Planning Assessment Assigned Direct Sales Consultant EMMANUELLE Garay Advance Directives? Yes Advance Directives on File Yes History Provided By Patient,Medical Record Has Patient been admitted in last 30 No days? Prior Living Arrangements House Household Members none Comment Pt's in 2021. Type of transporation used prior to Drives own vehicle admit Independent with ADL's Yes Is patient alert and oriented? Yes Caregiver for Another No DME Already Rented / Owned Cane Patient/Family Preference OP OT Therapy Barriers to Discharge No Discharge Plan Home Community Services Physical Therapy Transportation Arrangement Daughter Referrals Initiated None needed Review Status In Process Please Provide Date Initial DC 12/09/23 Assessment Was Performed Pre-Anesthesia Assessment Start: 12/01/23 09:52 Freq: Status: Complete Protocol: Document 12/01/23 09:55 CAB (Rec: 12/01/23 10:23 CAB [id number]) Pre-Anesthesia Assessment Preferred Name Von Patient Information Reviewed Via Phone Assessment Assessment Completed With Patient Diagnostic Results BMP/CMP,CBC,EKG Comment Outside labs/EKG scanned Primary Care Provider Yasmine Shore Comment PCP pre-op 10/29/23, clearance form 10/21/23 scanned & in surgery folder Seen Specialist in Last 12 Months Yes Specialist Seen Orthopedist Primary Language Swedish Preferred Language Swedish Doughnut Batter Mixer Required No Height 175.26 cm Weight 117.934 kg Body Mass Index (BMI) 38.4 Hearing Ability Normal Visual Assist Glasses Dentition Type Partial- Lower,Full- Upper Barriers to Learning None Other Aids Yes: CPAP Hx Anesthesia Reactions No Hx Family Anesthesia Reaction No Hx Malignant Hyperthermia No Hx Blood Transfusions No Anesthesia Review Requested No Systems Qa Analyst No alcohol intake never Smoking Status Never smoker Substance Use Type does not use Pain Present Pain Reported Musculoskeletal Symptoms Abnormal Gait,Difficulty Walking,Joint Pain,Muscle Cramps,Muscle Weakness, Numbness,Radiating Pain into Limb,Tremors History of Falling (Recent or History of Yes ) Patient is completely paralyzed or No completely immobile Prosthesis or Orthotic Device Cane Mental Status Oriented to own ability Comment Cane with outside ambulation Is patient on oxygen? No Does patient have VILLALOBOS/SOB No Hx Sleep Apnea Yes CPAP/BIPAP use prescribed and used routinely Will Bring CPAP/BIPAP DOS Yes Currently Taking a Beta Rene No Can You Climb a Flight of Stairs Without No SOB Hx Chest Pain No Hx SOB No Hx Syncope or Dizziness No Anti-Coagulant Therapy No Has a Manager Generation No Cardiac Testing No Hx Pacemaker/ICD No Pacemaker Rep Required? No Diet Type At Home Regular Dysphagia No Gastrointestinal Symptoms Constipation,Reflux Bladder Pattern Frequency,Incontinent, Incontinent, Stress,Urgency Urinary Catheter Present No Hx Urinary Self Catheterization No Diabetes No: Pt advised pre-diabetic HgbA1C 5.1 Date 09/14/23 Patient No Lactating No Hx Drug Resistant Organism No Presence of External or Internal Medical Yes: CPAP, right knee Devices prosthesis, bilat eye IOLs Received a COVID vaccine? Yes Received all doses? Yes Marital Status / Lives With none Current Living Arrangements House Number of Floors (Floors) One Floor Number of Stairs To Enter/Railing? Wheelchair ramp Support System Child/Children Does the Patient Have Assistance After Yes: Daughter will stay w/pt Surgery upon discharge to assist with care Patient Discharge Plan Description Return Home Comment Pt advised overnight length of stay per surgeon Feels Safe in Current Environment Yes Been Physically Hurt or Threatened By a No Person in Current Environment Do you have thoughts of harming yourself None or others? Are you currently considering suicide? No Do you have a plan to hurt yourself or No Plan others? Do You Have Any Spiritual Beliefs That No May Affect Your HC Choices? Do You Have Any Cultural Practices That No May Affect Your HC Choices? Comment [place] Who Can We Speak to About Patient's Care Family, friends Identifying Code for Release of Patient Declines to issue Information Health Care Proxy/Next of Kin Natasha Lewis (daughter) Health Care Proxy Emergency Contact Name Natasha Lewis (daughter) Emergency Contact Advance Directives? Yes Advance Directives on File Yes Requested Patient Bring Advanced Not Applicable Directives DOS Power of Ordinary Seaman Yes Power of Ordinary Seaman Name Natasha Lewis (garry) Power of Ordinary Seaman PAC Instructions Bring CPAP/BIPAP,Do not shave/ clip surgical site,Durable medical equipment,Medications to take/avoid,Nasal antibiotic ,No ETOH/petroleum product on skin DOS,NPO,Post-op transportation,Pre-surgical wash,Sensory aids,Sturdy shoes /comfortable clothes,Do not bring valuables and remove jewelry
[2023-12-10] MEDS: buPROPion XL 150 MG TAB PO (08:04)
[2023-12-10] MEDS: LEVOTHYROXINE 100 MCG TABLET 200 MCG PO (08:04)
[2023-12-10] MEDS: FUROSEMIDE 40 MG TABLET PO (08:05)
[2023-12-10] MEDS: OXYBUTYNIN 5 MG ER TAB 15 MG PO (08:05)
[2023-12-10] MEDS: PANTOPRAZOLE DR 40 MG TABLET PO (08:05)
[2023-12-10] MEDS: AMLODIPINE 5 MG TABLET 10 MG PO (08:05)
[2023-12-10] MEDS: SERTRALINE 50 MG TABLET 200 MG PO (08:05)
[2023-12-10] MEDS: ASPIRIN EC 81 MG TABLET PO (08:05)
[2023-12-10] MEDS: DOCUSATE 100 MG CAPSULE PO (08:05)
--- NOTE | 2023-12-10 09:00 | PT.IPTN ---
Current Diagnoses Bilateral primary osteoarthritis of knee (12/09/23) Unilateral primary osteoarthritis, left knee (12/09/23) Other specified joint disorders, unspecified knee (12/09/23) Body mass index [BMI] 39.0-39.9, adult (12/09/23) Surgery Performed Operation Date: 12/09/23 08:45 Actual Procedures p Total Knee Arthroplasty - Robot(Left) - Lizette Bhatt MD Physical Therapy Treatment Note M2 PT-IP Current Condition Start: 12/09/23 14:49 Freq: NEEDED Status: Active Protocol: Document 12/09/23 13:20 AB (Rec: 12/09/23 15:04 AB [id number]) Physical Therapy Current Condition Current Condition Evaluation Date 12/09/23 Treatment Diagnosis s/p L TKA; difficulty in walking Onset Date 12/09/23 M3 PT-IP Subjective Start: 12/09/23 14:49 Freq: NEEDED Status: Active Protocol: Document 12/10/23 09:27 TS (Rec: 12/10/23 09:45 TS [id number]) Subjective Physical Therapy Visit Type Type Treatment Note Visit Start Time 09:00 Visit Stop Time 09:25 Total Visit Minutes 25 Number of MEDICAL PRACTICE ADMINISTRATOR Visits 1 Physical Therapy Visit Comments Patient Comments Pt found resting in bed, family in room, reports feeling better today and has been up with nursing. Pt is agreeable to PT. Therapy Pain Assessment Pain When Pain Assessed At Rest Pain Present Pain Present Pain Reported M4 PT-IP Mobility and Gait Start: 12/09/23 14:49 Freq: NEEDED Status: Active Protocol: Document 12/10/23 09:27 TS (Rec: 12/10/23 09:45 TS [id number]) PT-Bed Mobility Assessment Supine to Sit Supine to Sit Contact Guard Assistance Scooting Scooting to Edge of Bed Contact Guard Assistance PT-Transfer Assessment Sit to and From Stand Sit to and from Stand Contact Guard Assistance,Use of Upper Extremities Equipment Transfer Assistive Device Gait Belt,Front Wheeled Walker Orthotic/Prosthetic Devices or Brace: No Comments Mobility Comments Supine to sit from flat bed CGA, pt uprights trunk and uses SPC to assist LLE to EOB. Sit to stand with FWW CGA, pt leans heavily onto FWW with UE's and with increased wbering on RLE to stand. She ambulated in room ~30' SBA with step to gait, denied any dizziness or lightheadedness. Pt sat EOB, performed sit to stand again with CGA, ambulated another ~15' in room . Pt was left sitting EOB with OT. Gait Assessment Gait Gait Assistance Required: Standby Assistance Distance (Feet) 45 Able to Maintain Weight Bearing Status No During Gait Assistive Devices Assistive Device Front Wheeled Walker Orthotic/Prosthetic Devices or Brace: No Gait Deviations General Gait Pattern Antalgic,Decreased Stride Length,Decreased Feet Clearance,Step-to Gait Factors Limiting Gait Function Factors Limiting Gait Function Decreased Activity Tolerance, Decreased Strength,Poor Balance,Poor Safety Awareness Comments Gait Comments See mobility comments PT-Balance Assessment Sitting Balance and Reactions Static Sitting Balance Ability Good Dynamic Sitting Balance Ability Good Standing Balance and Reactions Static Standing Balance Ability Fair Dynamic Standing Balance Ability Fair Device Used FWW M5 PT-IP Objective Assessments Start: 12/09/23 14:49 Freq: NEEDED Status: Active Protocol: Document 12/09/23 13:20 AB (Rec: 12/09/23 15:04 AB [id number]) Orientation Orientation/Cognition Level of Alertness Alert Orientation Name,Place,Situation Language Function Ability No Deficits Noted Safety Awareness Decreased Safety Awareness Memory Description No Deficits Noted Comments pt initially sleepy Gross Range of Motion Lower Extremity ROM Assessment Left Impaired Impairments L knee flexion: ~ 40 deg with increase guarding during PROM Strength Lower Extremity Strength Assessment Left Impaired Hip 3-/5 Knee 3+/5 Comments Strength Comments RLE: 4-/5 Muscle Tone Muscle Tone WNL Yes M6 PT-IP Treatment Start: 12/09/23 14:49 Freq: NEEDED Status: Active Protocol: Document 12/10/23 09:27 TS (Rec: 12/10/23 09:45 TS [id number]) Physical Therapy Treatment Education Education Provided Precautions,Weight Bearing Status,Post-Op Packet,Safety M7 PT-IP Assessment and Plan Start: 12/09/23 14:49 Freq: NEEDED Status: Active Protocol: Document 12/10/23 09:27 TS (Rec: 12/10/23 09:45 TS [id number]) PT Summary Assessment and Plan Potential Rehabilitation Potential Fair Summary Impairments Pain,ROM,Strength,Balance, Coordination,Sensation,Tone, Cognition,Bed Mobility, Transfers,Gait,Activity Tolerance Progress Towards Goals Progressing Toward Goals Assessment Summary Tanika is making good progresswith her mobility. She is CGA for supine to sit with use of SPC to assist LLE to EOB. She performed sit to stand with FWW CGA with heavy use of UE's. She progressed her gait to ~45' SBA with FWW. PT is recommending pt return home with assist. Goals Bed Mobility Goal Standby Assistance Transfer Goal Standby Assistance,Front Wheeled Walker Gait Goal Standby Assistance,Front Wheel Walker Gait Distance 100 Other Goals improve ambulation using LRAD ~ 250 ft SBA Days to Meet Goals 5 Frequency of Treatment Frequency Of Treatment Twice a Day Treatment Plan Physical Therapy Treatment Plan Bed Mobility Training,Transfer Training,Gait Training, Therapeutic Exercise,Balance Retraining,Post Op Education, Discharge Planning,Hot or Cold Pack,Neuromuscular Re-ed, Coordination Retraining,Manual Therapy Weight Bearing Status Weight Bearing Status Weight Bear as Tolerated Allowed Weight Bearing Amount (enter % LLE WBAT or #) (%) Recommendations To Nursing Amount of Assist Needed 1 Person Assist Discharge Recommendations PT Discharge Recommendations Home with Assistance,Home Health Transportation Needs at Discharge Private Vehicle,Wheelchair/ Cabulance
[2023-12-10 09:06] VITALS: BP 133/49; PULSE 64; RESP 18; TEMP 36.2; O2SAT 93
--- NOTE | 2023-12-10 09:45 | OT.IP.EVAL ---
Current Diagnoses Bilateral primary osteoarthritis of knee (12/09/23) Unilateral primary osteoarthritis, left knee (12/09/23) Other specified joint disorders, unspecified knee (12/09/23) Body mass index [BMI] 39.0-39.9, adult (12/09/23) Surgery Performed Operation Date: 12/09/23 08:45 Actual Procedures p Total Knee Arthroplasty - Robot(Left) - Lizette Bhatt MD Past Medical History (Last Updated 01/29/20 @ 16:28 by GUSTAVO Velasquez) Cellulitis Collar bone fracture (~1971) Depression Edema Fibromyalgia GERD (gastroesophageal reflux disease) Herniated intervertebral disc of lumbar spine HTN (hypertension) Hyperlipidemia Hypothyroidism Morbid obesity with body mass index (BMI) of 40.0 to 49.9 Obstructive sleep apnea Osteoarthritis Pneumonia Pre-diabetes Sciatica Surgical History (Last Updated 12/01/23 @ 10:11 by Miracle Hopkins RN) H/O: hysterectomy History of arthroscopy of both knees History of total right knee replacement (01/19/19) Hx of bilateral cataract extraction (2022) Hx of bladder repair surgery Hx of dilation and curettage Hx of tubal ligation Occupational Therapy Inpatient Evaluation/Re-Eval M1 PT/OT-IP Prior Functional Status Start: 12/10/23 09:42 Freq: NEEDED Status: Active Protocol: Document 12/10/23 09:42 [facility] (Rec: 12/10/23 09:59 [facility] [id number]) Medical Review Prior Functional Status Medical History Reviewed Yes Communication able to make needs known Mobility and Gait pt stated that she was modified independent with all mobilities and ambulation without AD but uses a SPC for outdoor mobility Activities of Daily Living and IADL's Pt having more difficulty with ADl and IADL needs. Social History Household Members none Living Arrangements House Number of Floors (Floors) One Floor Number of Stairs To Enter/Railing? ramp to enter Home Environment High Toilet,Walk in Shower, Ramp Home Equipment Front Wheel Walker,Four Wheel Walker,Straight Cane,Hand Held Shower,Stock Clerk Self Service Store,Grab Bars Near Toilet,Grab Bars In Shower Additional Social History Comment Pt has 40 ft to get into the house. Pt's family states has a wc that they can use to assist to get to the house if needed but just needs to be put together. M2 OT-IP Current Condition Start: 12/10/23 09:42 Freq: Status: Active Protocol: Document 12/10/23 09:42 [facility] (Rec: 12/10/23 09:59 [facility] [id number]) Occupational Therapy Current Condition Current Condition Evaluation Date 12/10/23 Treatment Diagnosis S/P L TKA Diagnosis Onset Date 12/09/23 M3 OT- IP Subjective and Pain Start: 12/10/23 09:42 Freq: Status: Active Protocol: Document 12/10/23 09:42 [facility] (Rec: 12/10/23 09:59 [facility] [id number]) OT- Subjective Occupational Therapy Visit Type Type Initial Evaluation Visit Start Time 08:55 Visit Stop Time 09:40 Total Visit Minutes 45 Occupational Therapy Visit Comments Patient Comments Pt agreed to get up and get dressed. Pt's daughter and son in law in the room for caregiver training. Patient/Caregiver Goals TO go home. OT Pain Assessment Pain When Pain Assessed At Rest Pain Present Pain Present Pain Reported Location left knee Intensity 5 Scale Used Numeric (0 - 10) M4 OT- IP ADL's Start: 12/10/23 09:42 Freq: Status: Active Protocol: Document 12/10/23 09:42 [facility] (Rec: 12/10/23 09:59 [facility] [id number]) OT IGE-Dmri-Cpaubrj General Evaluation Self-Feeding Ability Independent OT ADL-Grooming Comments OT Grooming Comments Not performed. OT ADL-Oral Care Comments Oral Care Comments NOt performed. OT ADL-Dressing General Eval Lower Body Dressing Ability Maximum Assistance Comments OT Dressing Comments Educated to dress her LLE first and take out last. Pt has LB dressing equipment at home to use. At this time pt needing assist as getting tired. OT ADL-Toileting General Evaluation Toileting Ability Moderate Assistance Areas Needing Assistance Manage Clothing Comments OT Toileting Comments Assist for brief management needs. Educated to use wipes and pads at night as the bathroom is 25 ft from the recliner. Also suggested of getting a BSC if needed to be place next to the bed or lift chair. OT ADL-Bathing Comments OT Bathing Comments Not performed. Pt will benefit form a shower chair and assist at home. M5 OT- IP IADL's Start: 12/10/23 09:42 Freq: Status: Active Protocol: Document 12/10/23 09:42 [facility] (Rec: 12/10/23 09:59 [facility] [id number]) OT-Instrumental Activities of Daily Living Deficits IADL Deficits Identified Deficits Home Safety Awareness Awareness of Need for Assistance at Home Good Awareness Ability to Problem Solve Emergency Able to Problem Solve Situations Home Safety Comments Pt has supportive family to stay and assist her at home for all needs. Medication Management Medication Management No Deficits Identified Money Management Money Management No Deficits Identified Meal Preparation Meal Preparation Comments Pt's family to assist. Wage Analyst Wage Analyst Comments Pt's family to assist. M6 OT- IP Functional Cognition Start: 12/10/23 09:42 Freq: Status: Active Protocol: Document 12/10/23 09:42 [facility] (Rec: 12/10/23 09:59 [facility] [id number]) Cognitive Factors Limiting Selfcare Function Cognitive Ability Level of Alertness Alert Patient Orientation Name,Age,Birthday,Month,Date, Year,Day of Week,Place, Situation Attention Span Ability Capable of Focused Attention, Capable of Sustained Attention Ability to Follow Commands Able to Follow Multi-Step Commands Safety Awareness Underestimates Need for Assistance Cognitive Comments Cognitive Assessment Comments Pt able to follow commands for all needs. Pt however insistent on getting up via grabbing her daughter hand from lower surfaces. Suggested pt's daughter provide assist at the gait belt and hand if needed. OT- Vision and Hearing OT- Hearing Assessment OT- Hearing Assessment WFL M7 OT- IP Mobility and Balance Start: 12/10/23 09:42 Freq: Status: Active Protocol: Document 12/10/23 09:42 [facility] (Rec: 12/10/23 09:59 [facility] [id number]) OT- Bed Mobility Assessment Supine to Sit Supine to Sit Assist Standby Assistance,Bedrails Scooting Scooting to Edge of Bed Standby Assistance OT-Transfer Assessment Sit to and From Stand Sit to and from Stand Contact Guard Assistance, Moderate Assistance,Use of Upper Extremities Transfers Transfer Ability Standby Assistance,Contact Guard Assistance Technique Transfer Destination Bed,Chair,Toilet Transfer Technique Stand Step Pivot Devices Transfer Assistive Devices Gait Belt,Front Wheeled Walker Comments Mobility Comments Pt educated to use straight cane to assist to get her LLE off of the bed as 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 Pt needing from CGA to MODA to stand form lower surfaces. Pt's FWW a bit loose and suggested to get another FWW or have the FWW services and looked at. Pt has a 4ww at home and able to try with 4ww and needing more assist CGA for balance versus SBA with FWW. Pt's daughter educated on how to gerber/doff the gait belt and how to assist pt for needs. Pt states to sleep in her lift chair initially. OT- Balance Assessment Sitting Balance and Reactions Static Sitting Balance Ability Good Dynamic Sitting Balance Ability Good Standing Balance and Reactions Static Standing Balance Ability Fair Dynamic Standing Balance Ability Fair M8 OT- IP Objective Assessments Start: 12/10/23 09:42 Freq: Status: Active Protocol: Document 12/10/23 09:42 [facility] (Rec: 12/10/23 09:59 [facility] [id number]) OT Gross Range of Motion Upper Extremity Range of Motion Assessment Within Functional Limits OT Strength Comments Strength Comments WFL for needs. M9 OT- IP Assessment and Plan Start: 12/10/23 09:42 Freq: Status: Active Protocol: Document 12/10/23 09:42 [facility] (Rec: 12/10/23 09:59 [facility] [id number]) OT Summary Assessment and Plan Potential Rehabilitation Potential Excellent Analytic Complexity at Evaluation Low Summary OT Impairments Pain,Strength,Balance, Functional Mobility,Dressing, Toileting,Bathing,Toilet Transfers,Shower Transfers, Activity Tolerance Progress Towards Goals Progressing Toward Goals Assessment Summary Pt low complexity and main barrier are pain and will know need assist for ADl and mobility needs. Pt's daughter present for caregiver training and able to assist safely for all ADL and mobility needs. Suggested pt get another fww as current one is a bit loose, pt would also benefit form using a wc for longer distances-especially to get into the house. Pt also can benefit from a shower chair at home for showers. Pt to go home with assist and have outpt PT. Goals Dressing Goal Independent,Stock Clerk Self Service Store,Sock Aid Toileting Goal Independent Bathing Goal Standby Assistance Toilet Transfer Goal Independent Shower Transfer Goal Standby Assistance Days to Meet Goals 7 Frequency of Treatment Frequency Of Treatment Once a Day Treatment Plan OT Treatment Plan ADL Training,Functional Mobility,Patient/Family Education,Discharge Planning Discharge Recommendations OT Discharge Recommendations Home with Assistance, Outpatient PT Home Equipment Needs FWW, shower chair Transportation Needs at Discharge Private Vehicle
--- NOTE | 2023-12-10 10:05 | PC.NURSE ---
Day shift: Discharge instructions gone over with patient and patient's daughter. They stated understanding, all questions answered. PIV removed prior to discharge. All belongings with patient. GISELA Lennon escorted patient via wheelchair to exit with her family.
== END 2023-12-10 09:50 | disposition home or self-care (01) ==
LOC: OR 07:28 → AC 10:08
PROVIDERS: Family Provider Nurse Practitioner; PCP Nurse Practitioner; Referring Provider Orthopaedic Surgery Foot and Ankle Surgery; Visit Provider Orthopaedic Surgery Foot and Ankle Surgery
PROC: 0SRD0JZ Replacement of Left Knee Joint with Synthetic Substitute, Open Approach (ICD-10-PCS; CPT 27447; principal; 2023-12-09 08:45)
DX: M17.12 Unilateral primary osteoarthritis, left knee (principal); M21.162 Varus deformity, not elsewhere classified, left knee; M25.762 Osteophyte, left knee; E66.01 Morbid (severe) obesity due to excess calories; Z68.39 Body mass index [BMI] 39.0-39.9, adult
CPT/HCPCS: 27447; 36415; 73560; 85014; 85018; 97116; 97162; 97165; 97530; 97535; C1776; C9290; J0171; J0690; J1100; J1170; J1885; J2405; J2704; J3010

== ENCOUNTER → 2024-02-26 11:25 | Outpatient (CLI) | payer MEDICARE, OTHER, SELFPAY ==
[2023-12-09 13:00] VITALS: BMI 41.2
--- NOTE | 2024-02-26 11:26 | DI.MG.S_ITS ---
BILATERAL DIGITAL SCREENING MAMMOGRAM 3D/2D WITH CAD: 02/26/2024 CLINICAL: Routine screening. Family history breast cancer. Comparison is made to exams dated: 02/07/2023 mammogram, 04/26/2021 mammogram, 04/23/2019 mammogram, and 04/17/2018 mammogram - [facility]. There are scattered areas of fibroglandular density in both breasts (category b / 25%-50% glandular tissue). Current study was also evaluated with a Computer Aided Detection (CAD) system. There is a possible developing asymmetry in the right breast at 5 o'clock in the retroareolar region. This is more prominent and increased in size. No other significant masses, calcifications, or other findings are seen in either breast. IMPRESSION: INCOMPLETE: NEEDS ADDITIONAL IMAGING EVALUATION The possible developing asymmetry in the right breast is indeterminate. Additional views with possible ultrasound are recommended. Based on the Tyrer Cuzick model (a risk assessment model) the patient's lifetime risk is 5.7% and her 10 year risk is 5.2%. According to the ACR, ACS, and NCCN guidelines, an annual breast MRI exam along with mammogram is recommended if the patient's lifetime risk is 20% or greater. This exam was interpreted at Station ID: [id number]. NOTE: For mammograms, a report in lay terms will be sent to the patient. Approximately 15% of breast malignancies will not be visualized mammographically. In the management of a palpable breast mass, a negative mammogram must not discourage biopsy of a clinically suspicious lesion. Electronically Signed By: Maria Fernanda rodriguez/comfort:02/26/2024 17:13:10 letter sent: Additional Imaging Needed ACR BI-RADS Category 0: Incomplete 3340F
== END ==
LOC: MAMMO 11:25
PROVIDERS: Family Provider Nurse Practitioner; PCP Nurse Practitioner; Referring Provider Nurse Practitioner; Visit Provider Nurse Practitioner
DX: Z12.31 Encounter for screening mammogram for malignant neoplasm of breast (principal); Z80.3 Family history of malignant neoplasm of breast; R92.323 Mammographic fibroglandular density, bilateral breasts
CPT/HCPCS: 77063; 77067

== ENCOUNTER → 2024-03-23 07:34 | Outpatient (CLI) | payer MEDICARE, OTHER, SELFPAY ==
[2023-12-09 13:00] VITALS: BMI 41.2
--- NOTE | 2024-03-23 | DI.MG.S_ITS ---
UNILATERAL RIGHT DIGITAL DIAGNOSTIC MAMMOGRAM 3D/2D WITH ADDITIONAL VIEWS: 03/23/2024 CLINICAL: Additional evaluation requested from prior study. Comparison is made to exams dated: 02/26/2024 mammogram, 02/07/2023 mammogram, and 04/26/2021 mammogram - [facility]. There are scattered areas of fibroglandular density in the right breast (category b / 25%-50% glandular tissue). There is a possible developing asymmetry in the right breast at 5 o'clock in the retroareolar region. This is seen in additional views. This is more prominent and increased in size. No other significant masses or calcifications are seen in the breast. IMPRESSION: INCOMPLETE: NEEDS ADDITIONAL IMAGING EVALUATION The possible developing asymmetry in the right breast is indeterminate. A targeted ultrasound of the right breast is recommended and will be performed immediately following this exam. Based on the Tyrer Cuzick model (a risk assessment model) the patient's lifetime risk is 5.7% and her 10 year risk is 5.2%. According to the ACR, ACS, and NCCN guidelines, an annual breast MRI exam along with mammogram is recommended if the patient's lifetime risk is 20% or greater. This exam was interpreted at Station ID: [id number]. NOTE: For mammograms, a report in lay terms will be sent to the patient. Approximately 15% of breast malignancies will not be visualized mammographically. In the management of a palpable breast mass, a negative mammogram must not discourage biopsy of a clinically suspicious lesion. Electronically Signed By: Lexis Dailey M.D. lk/:03/23/2024 08:17:06 ACR BI-RADS Category 0: Incomplete 3340F
--- NOTE | 2024-03-23 07:36 | DI.US.S_ITS ---
LIMITED ULTRASOUND OF RIGHT BREAST: 03/23/2024 CLINICAL: Patient returns today to evaluate a focal asymmetry in the right breast. Comparison is made to exams dated: 03/23/2024 mammogram, 02/26/2024 mammogram, 02/07/2023 mammogram, 04/26/2021 mammogram, and 04/23/2019 mammogram - [facility]. Real-time ultrasound of the right breast 6 o'clock region was performed on the areas of interest. Menjivar scale images of the real-time examination were reviewed. There is a cluster of irregular complicated cysts in the right breast at 9 o'clock anterior depth. This cluster of irregular complicated cysts is hypoechoic with internal echoes and posterior acoustic enhancement. This likely correlates with mammography findings. Color flow imaging demonstrates that there is no vascularity present. IMPRESSION: PROBABLY BENIGN The cluster of irregular complicated cysts in the right breast is probably benign. A follow-up ultrasound in 6 months is recommended to demonstrate stability. This exam was interpreted at Station ID: [id number]. Electronically Signed By: Lexis sousa/:03/23/2024 08:49:08 letter sent: Followup Recommended Ultrasound BI-RADS: 3 Probably benign
== END ==
PROVIDERS: Family Provider Nurse Practitioner; PCP Nurse Practitioner; Referring Provider Nurse Practitioner; Visit Provider Nurse Practitioner
DX: R92.8 Other abnormal and inconclusive findings on diagnostic imaging of breast (principal); N60.01 Solitary cyst of right breast; N64.89 Other specified disorders of breast; R92.321 Mammographic fibroglandular density, right breast
CPT/HCPCS: 76642; 77065; G0279

== ENCOUNTER 2024-03-23 09:06 | Emergency (ER) | payer MEDICARE, OTHER, SELFPAY ==
[2023-12-09 13:00] VITALS: BMI 41.2
[2024-03-23] VITALS (23 sets, daily range): BP systolic 143–175; BP diastolic 59–79; PULSE 62–76; RESP 14–32; TEMP 36.4; O2SAT 94–100; BMI 36.9
--- NOTE | 2024-03-23 09:08 | DI.CT.S_ITS ---
PROCEDURE: CT FACIAL BONES WO CON INDICATIONS: fall/pain TECHNIQUE: Noncontrast 2.5 mm thick axial images acquired from the mandible through the frontal sinuses, with coronal and sagittal reformatting. For radiation dose reduction, the following was used: automated exposure control, adjustment of mA and/or kV according to patient size. COMPARISON: None. FINDINGS: Image quality: Excellent. Bones and teeth: Orbital maurice are intact. Sinus maurice show no fracture or deformity. Nasal bones and septum are intact. Visualized portions of the mandible demonstrate no fractures or subluxation. Zygomatic arches are intact. Pterygoid plates are intact. Visualized portions of the skull base and auditory canals are intact. Sinuses: Paranasal sinuses are aerated, without fluid levels, mucosal thickening, or mucoceles. Mastoid air cells are aerated. Soft tissues: Subcutaneous emphysema in the left cheek. Mild subcutaneous stranding lateral superior to the left orbit. No enlarged lymph nodes. No soft tissue lacerations or debris. Vascular: Visualized vascular structures appear normal in the absence of contrast. Bony vascular foramina and canals are intact. IMPRESSION: No acute facial fractures. Dictated by: Reji Ayala M.D. on 03/23/2024 at 9:34 Approved by: Reji Ayala M.D. on 03/23/2024 at 9:37
--- NOTE | 2024-03-23 09:08 | DI.CT.S_ITS ---
PROCEDURE: CT HEAD/BRAIN WO CON INDICATIONS: fall/pain TECHNIQUE: Noncontrast 4.5 mm thick angled axial sections acquired from the foramen magnum to the vertex, with coronal and sagittal reformats. For radiation dose reduction, the following was used: automated exposure control, adjustment of mA and/or kV according to patient size. COMPARISON: None. FINDINGS: Image quality: Diagnostic. CSF spaces: Basal cisterns are patent. Small extra-axial collection on the left frontal convexity measuring up to 5 millimeters in thickness. There is small adjacent subarachnoid hemorrhage. The ventricles are symmetric in size and shape. Brain: There is cerebral volume loss for age, with resultant ventricular and sulcal prominence. There are periventricular and deep white matter chronic small vessel ischemic changes. There is intracranial internal carotid artery atherosclerosis. Skull and face: Calvarium and visualized facial bones appear intact, without suspicious lesions. Sinuses: Visualized sinuses and mastoids are clear. IMPRESSION: Small extra-axial blood along the left frontal convexity measuring 5 millimeters in thickness with small adjacent subarachnoid hemorrhage. Findings discussed with Dr. Hager at 9:41 a.m. On 03/23/2024. Dictated by: Reji Ayala M.D. on 03/23/2024 at 9:38 Approved by: Reji Ayala M.D. on 03/23/2024 at 9:42
--- NOTE | 2024-03-23 09:08 | DI.CT.S_ITS ---
PROCEDURE: CT CERVICAL SPINE WO CON INDICATIONS: fall/pain TECHNIQUE: Noncontrast 3 mm thick sections acquired from the skull base to the T4 level. Sagittal and coronal reformats were then constructed. For radiation dose reduction, the following was used: automated exposure control, adjustment of mA and/or kV according to patient size. COMPARISON: None. FINDINGS: Image quality: Excellent. Bones: No fractures or dislocations. Mild multilevel degenerative changes of the cervical spine. Diffusely decreased osseous mineralization. Visualized superior ribs are intact. Soft tissues: Prevertebral soft tissues are normal in thickness. No paravertebral hematomas. No apical pneumothoraces. IMPRESSION: No displaced fracture or traumatic subluxation. Dictated by: Reji Ayala M.D. on 03/23/2024 at 9:32 Approved by: Reji Ayala M.D. on 03/23/2024 at 9:34
--- NOTE | 2024-03-23 09:10 | ED.FALL ---
HPI - Fall <Levi Hager MD - Last Filed: 03/29/24 07:52> General Chief Complaint: Fall Stated Complaint: GLF,head lac,no thinners Time Seen by Provider: 03/23/24 09:07 History of Present Illness HPI Narrative: Rapid response called for patient falling in the hallway here at the hospital. Employee nurse was following behind patient in the hallway. Patient caught her toe on the floor causing her to fall. Patient uses a cane to walk. Patient is awake alert oriented x4. She states she was here for outpatient sonography/ultrasound. No blood work was done. Patient is not on any blood thinners. Only complains of injury to left cheek area. No loss of consciousness. Staff immediately at patient's side when she fell. Spinal precautions were conducted, no midline tenderness or step-off of the cervical spine or lumbar spine. Patient was safely lifted with multiple employees/4 employees, transferred to bed and pushed to the emergency department. I was at patient's side with rapid response. Patient denies any neck back shoulder elbow pelvis hips knees or ankle injury/pain. Patient denies any pre event chest pain palpitations dizziness abdominal pain. Did not pass out. Related Data Home Medications Medication Instructions Recorded Confirmed multivitamin 1 cap PO QDAY ##0 12/20/12 03/23/24 amlodipine 10 mg tablet 10 mg PO DAILY 01/04/19 03/23/24 bupropion HCl 150 mg 24 hr tablet, 300 mg PO QAM 01/04/19 03/23/24 extended release furosemide 40 mg tablet 40 mg PO QAM 01/04/19 03/23/24 levothyroxine 200 mcg tablet 200 mcg PO QAM 01/04/19 03/23/24 oxybutynin chloride 15 mg 15 mg PO QAM 01/04/19 03/23/24 tablet,extended release 24 hr sertraline 100 mg tablet 200 mg PO QAM 01/04/19 03/23/24 pantoprazole 40 mg tablet,delayed 40 mg PO BID 12/01/23 03/23/24 release acetaminophen 325 mg tablet 650 mg PO Q6H PRN Pain (Scale 03/23/24 03/23/24 Score 4-6) atorvastatin 40 mg tablet 40 mg PO QPM 03/23/24 03/23/24 Previous Rx's Medication Instructions Recorded baclofen 20 mg tablet 20 mg PO TID PRN pain (scale score 03/23/24 4-6) #20 tabs cephalexin 500 mg capsule 500 mg PO BID 7 days #14 caps 03/26/24 Allergies Allergy/AdvReac Type Severity Reaction Status Date / Time adhesive tape Allergy Severe Blister - Verified 03/23/24 09:09 Paper tapes work fine Sulfa (Sulfonamide Allergy Intermediate Rash Verified 03/23/24 09:09 Antibiotics) Review of Systems <Levi Hager MD - Last Filed: 03/29/24 07:52> Review of Systems Narrative: GENERAL: negative chills, fatigue, malaise, fever, sweats. HEENT: negative sinus pain, ear pain, sore throat RESPIRATORY: negative dyspnea, cough CARDIOVASCULAR: negative chest pain, palpitations GASTROINTESTINAL: negative nausea, vomiting, abdominal pain : negative dysuria, frequency, hematuria MUSCULOSKELETAL: negative muscle or bony pain SKIN: negative rash, skin lesions, positive skin injury NEUROLOGIC: negative weakness, numbness ROS Unobtainable: All systems reviewed & are unremarkable except as noted in HPI and below Patient History <Levi Hager MD - Last Filed: 03/29/24 07:52> Medical History Morbid obesity with body mass index (BMI) of 40.0 to 49.9 Obstructive sleep apnea Sciatica Depression Cellulitis Osteoarthritis Herniated intervertebral disc of lumbar spine Collar bone fracture (~1971) Pre-diabetes Hypothyroidism GERD (gastroesophageal reflux disease) Edema Hyperlipidemia HTN (hypertension) Pneumonia Fibromyalgia Surgical History Hx of bilateral cataract extraction (2022) 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 2 cm linear superficial laceration to the left lateral cheek., nontender nose nontender scalp and forehead EYES: Pupils equal round EOMI ENT: Mucous membranes moist. No trismus or malocclusion. No jaw tenderness NECK: Trachea midline. No midline tenderness or step-off of the cervical thoracic or lumbar spine CARDIOVASCULAR: Regular rate and rhythm RESPIRATORY: Clear to auscultation. Breath sounds equal bilaterally. No wheezes, rales, or rhonchi. GASTROINTESTINAL: Abdomen soft, non-tender EXTREMITIES: No gross deformities. Nontender bilateral shoulders elbows wrists pelvis hips knees and ankles BACK: No flank tenderness. NEURO: AOx4. SKIN: Warm and dry PSYCH: Not anxious, is cooperative Initial Vital Signs Initial Vital Signs: Vital Signs Temperature 97.6 F 03/23/24 09:11 Pulse Rate 76 03/23/24 09:11 Respiratory Rate 14 03/23/24 09:11 Blood Pressure 172/78 H 03/23/24 09:11 Pulse Oximetry 99 03/23/24 09:11 Oxygen Delivery Method Room Air 03/23/24 09:11 <Karen Amaya DO - Last Filed: 03/26/24 07:46> Initial Vital Signs Initial Vital Signs: Vital Signs Temperature 97.6 F 03/23/24 09:11 Pulse Rate 76 03/23/24 09:11 Respiratory Rate 14 03/23/24 09:11 Blood Pressure 172/78 H 03/23/24 09:11 Pulse Oximetry 99 03/23/24 09:11 Oxygen Delivery Method Room Air 03/23/24 09:11 Procedures <Levi Hager MD - Last Filed: 03/29/24 07:52> Laceration Repair Laceration 1: Time of procedure: 14:35 Site: face Side (If applicable): left Size (cm): 1.5 Description: linear Depth: simple, single layer Local Anesthetic: lidocaine 1% and with epi Amount of anesthesia used (mL): 1 Pre-repair: wound explored, irrigated extensively, deep structures intact and cleansed with chlorhexadine Skin layer closed with: nylon Skin layer suture size: 5-0 Number of sutures: 3 Technique: simple, interrupted Orthopedic Splinting/Casting Injury #1: Time of procedure: 16:27 Side: left Upper Extremity Injury Location: wrist Upper Extremity Immobilizer: wrist splint Post splinting neuro exam: intact Post splinting vascular exam: intact Placed by: Nursing Course <Levi Hager MD - Last Filed: 03/29/24 07:52> Orders Ordered: Discontinued Medications Lidocaine/Epinephrine (Lidocaine 1% W/Epi) 20 ml INJ INTRA-OP ONE Stop: 03/23/24 14:15 Last Admin: 03/23/24 14:28 Dose: 20 ml Documented By: MICHAEL Lidocaine/Prilocaine (Lidocaine/Prilocaine 5 Gm) 5 gm TOP NOW ONE Stop: 03/23/24 09:09 Last Admin: 03/23/24 09:26 Dose: 5 gm Documented By: MICHAEL Morphine Sulfate (Morphine 4 Mg/Ml Inj) 4 mg IV NOW ONE Stop: 03/23/24 14:19 Last Admin: 03/23/24 14:27 Dose: Not Given Documented By: MICHAEL Ondansetron HCl (Ondansetron 4 Mg/2 Ml Inj) 4 mg IV NOW ONE Stop: 03/23/24 14:19 Last Admin: 03/23/24 14:27 Dose: Not Given Documented By: MICHAEL Vital Signs Vital signs: Vital Signs - 8 hr 03/23/24 09:11 03/23/24 09:21 03/23/24 09:22 Temperature 97.6 F Pulse Rate 76 75 75 Respiratory Rate 14 Blood Pressure 172/78 H Pulse Oximetry 99 94 96 Oxygen Delivery Method Room Air 03/23/24 09:22 03/23/24 09:27 03/23/24 09:30 Temperature Pulse Rate 73 Respiratory Rate 14 Blood Pressure 162/59 H 163/70 H Pulse Oximetry 99 Oxygen Delivery Method Room Air 03/23/24 09:54 03/23/24 10:00 03/23/24 10:01 Temperature Pulse Rate 63 65 64 Respiratory Rate Blood Pressure Pulse Oximetry 96 99 97 Oxygen Delivery Method 03/23/24 10:01 03/23/24 10:27 03/23/24 10:27 Temperature Pulse Rate 65 Respiratory Rate 16 Blood Pressure 151/66 H 158/68 H Pulse Oximetry 97 Oxygen Delivery Method Room Air 03/23/24 10:30 03/23/24 10:30 03/23/24 11:00 Temperature Pulse Rate 63 63 Respiratory Rate 32 H 23 Blood Pressure 149/65 H Pulse Oximetry 98 100 Oxygen Delivery Method Room Air 03/23/24 11:00 03/23/24 11:30 03/23/24 11:30 Temperature Pulse Rate 62 Respiratory Rate 31 H Blood Pressure 143/67 H 144/73 H Pulse Oximetry 99 Oxygen Delivery Method Room Air 03/23/24 12:00 03/23/24 12:00 03/23/24 12:30 Temperature Pulse Rate 66 69 Respiratory Rate 20 14 Blood Pressure 161/70 H Pulse Oximetry Oxygen Delivery Method 03/23/24 12:30 03/23/24 13:15 03/23/24 13:30 Temperature Pulse Rate 69 65 Respiratory Rate 19 23 Blood Pressure 152/67 H Pulse Oximetry 97 98 Oxygen Delivery Method 03/23/24 14:00 03/23/24 14:17 03/23/24 14:17 Temperature Pulse Rate 64 69 Respiratory Rate 21 18 Blood Pressure 165/74 H Pulse Oximetry 98 Oxygen Delivery Method 03/23/24 14:30 03/23/24 14:30 03/23/24 15:18 Temperature Pulse Rate 71 67 Respiratory Rate 24 20 Blood Pressure 175/79 H Pulse Oximetry Oxygen Delivery Method 03/23/24 15:19 03/23/24 15:19 03/23/24 15:30 Temperature Pulse Rate 66 64 Respiratory Rate 24 19 Blood Pressure 152/67 H Pulse Oximetry 95 96 Oxygen Delivery Method 03/23/24 15:30 Temperature Pulse Rate Respiratory Rate Blood Pressure 149/67 H Pulse Oximetry Oxygen Delivery Method <Karen Amaya, - Last Filed: 03/26/24 07:46> Orders Ordered: Discontinued Medications Lidocaine/Epinephrine (Lidocaine 1% W/Epi) 20 ml INJ INTRA-OP ONE Stop: 03/23/24 14:15 Last Admin: 03/23/24 14:28 Dose: 20 ml Documented By: MICHAEL Lidocaine/Prilocaine (Lidocaine/Prilocaine 5 Gm) 5 gm TOP NOW ONE Stop: 03/23/24 09:09 Last Admin: 03/23/24 09:26 Dose: 5 gm Documented By: MICHAEL Morphine Sulfate (Morphine 4 Mg/Ml Inj) 4 mg IV NOW ONE Stop: 03/23/24 14:19 Last Admin: 03/23/24 14:27 Dose: Not Given Documented By: MICHAEL Ondansetron HCl (Ondansetron 4 Mg/2 Ml Inj) 4 mg IV NOW ONE Stop: 03/23/24 14:19 Last Admin: 03/23/24 14:27 Dose: Not Given Documented By: MICHAEL Vital Signs Vital signs: Vital Signs - 8 hr 03/23/24 09:11 03/23/24 09:21 03/23/24 09:22 Temperature 97.6 F Pulse Rate 76 75 75 Respiratory Rate 14 Blood Pressure 172/78 H Pulse Oximetry 99 94 96 Oxygen Delivery Method Room Air 03/23/24 09:22 03/23/24 09:27 03/23/24 09:30 Temperature Pulse Rate 73 Respiratory Rate 14 Blood Pressure 162/59 H 163/70 H Pulse Oximetry 99 Oxygen Delivery Method Room Air 03/23/24 09:54 03/23/24 10:00 03/23/24 10:01 Temperature Pulse Rate 63 65 64 Respiratory Rate Blood Pressure Pulse Oximetry 96 99 97 Oxygen Delivery Method 03/23/24 10:01 03/23/24 10:27 03/23/24 10:27 Temperature Pulse Rate 65 Respiratory Rate 16 Blood Pressure 151/66 H 158/68 H Pulse Oximetry 97 Oxygen Delivery Method Room Air 03/23/24 10:30 03/23/24 10:30 03/23/24 11:00 Temperature Pulse Rate 63 63 Respiratory Rate 32 H 23 Blood Pressure 149/65 H Pulse Oximetry 98 100 Oxygen Delivery Method Room Air 03/23/24 11:00 03/23/24 11:30 03/23/24 11:30 Temperature Pulse Rate 62 Respiratory Rate 31 H Blood Pressure 143/67 H 144/73 H Pulse Oximetry 99 Oxygen Delivery Method Room Air 03/23/24 12:00 03/23/24 12:00 03/23/24 12:30 Temperature Pulse Rate 66 69 Respiratory Rate 20 14 Blood Pressure 161/70 H Pulse Oximetry Oxygen Delivery Method 03/23/24 12:30 03/23/24 13:15 03/23/24 13:30 Temperature Pulse Rate 69 65 Respiratory Rate 19 23 Blood Pressure 152/67 H Pulse Oximetry 97 98 Oxygen Delivery Method 03/23/24 14:00 03/23/24 14:17 03/23/24 14:17 Temperature Pulse Rate 64 69 Respiratory Rate 21 18 Blood Pressure 165/74 H Pulse Oximetry 98 Oxygen Delivery Method 03/23/24 14:30 03/23/24 14:30 03/23/24 15:18 Temperature Pulse Rate 71 67 Respiratory Rate 24 20 Blood Pressure 175/79 H Pulse Oximetry Oxygen Delivery Method 03/23/24 15:19 03/23/24 15:19 03/23/24 15:30 Temperature Pulse Rate 66 64 Respiratory Rate 24 19 Blood Pressure 152/67 H Pulse Oximetry 95 96 Oxygen Delivery Method 03/23/24 15:30 Temperature Pulse Rate Respiratory Rate Blood Pressure 149/67 H Pulse Oximetry Oxygen Delivery Method MDM - Fall <Levi Hager MD - Last Filed: 03/29/24 07:52> Lab Data 03/23/24 10:10 03/23/24 10:10 Labs: Lab Results 03/23/24 03/23/24 Range/Units 10:10 10:20 WBC 6.5 (4.5-11.0) X10^3/uL RBC 4.72 (4.0-5.2) X10^6/uL Hgb 13.7 (12.0-16.0) g/dL Hct 41.3 (36-46) % MCV 87.5 (80-100) fL MCH 29.0 (26-34) PG MCHC 33.2 (30-36) % RDW 15.3 H (11.6-14.8) % Plt Count 146 L (150-400) X10^3/uL Neut % (Auto) 76.3 H (50-75) % Lymph % (Auto) 16.1 L (25-40) % [place] % (Auto) 6.1 (3-14) % Eos % (Auto) 1.3 L (2-4) % Baso % (Auto) 0.2 (0-2) % Neut # (Auto) 4900 (0664-5842) /uL Lymph # (Auto) 1000 L (5328-8914) /uL [place] # (Auto) 400 (0-900) /uL Eos # (Auto) 100 (0-450) /uL Baso # (Auto) 0 (0-100) /uL PT 12.0 (9.4-12.5) SECONDS INR 1.0 (0.9-1.3) APTT 34 (25.1-36.5) SECONDS Sodium 139 (137-145) mmol/L Potassium 4.1 (3.4-5.1) mmol/L Chloride 105 (98-107) mmol/L Carbon Dioxide 29 (22-32) mmol/L BUN 29 H (7-17) mg/dL Creatinine 0.80 (0.52-1.04) mg/dL Estimated GFR > 60 (>60) mL/min BUN/Creatinine Ratio 36.3 H (6-22) Glucose 112 H (80-110) mg/dL Calcium 9.4 (8.4-10.2) mg/dL Total Bilirubin 0.7 (0.2-1.3) mg/dL AST 20 (14-36) IU/L ALT 12 (<35) IU/L Alkaline Phosphatase 70 (38-126) U/L Total Protein 7.3 (6.3-8.2) g/dL Albumin 4.5 (3.5-5.0) g/dL Globulin 2.8 (1.7-4.1) g/dL Albumin/Globulin Ratio 1.6 (1.0-2.8) Urine Color Yellow Urine Appearance Clear Urine pH 5.0 (4.5-8.0) Ur Specific [place] 1.010 (1.000-1.035) Urine Protein Negative (Negative) Urine Glucose (UA) Negative (Negative) g/dL Urine Ketones Negative (NEGATIVE) Urine Occult Blood Negative (Negative) Urine Nitrate Negative (Negative) Urine Bilirubin Negative (NEGATIVE) Urine Urobilinogen 0.2 (0.2) E.U./dL Ur Leukocyte Esterase Trace H (NEGATIVE) Urine RBC None seen (0-5/HPF) Urine WBC 1-5/hpf (0-5/HPF) Ur Squamous Epith Cells 0-1 /hpf (0-5/HPF) Urine Bacteria None seen (None) Ur Culture Indicated? Specimen cultured Vol Urine Centrifuged 10ml (spun) Imaging Data CT scan - head: Radiologist's Impression: [address] [address] [address] Scan Report Signed Patient: Tanika Castillo MR#: [id number] : 1950 Acct:[id number] Age/Sex: 73 / F Date of Service: 03/23/24 Loc: ED Accession Number: [id number] Procedure: CT head/brain wo con Ordering Provider: Levi Hager MD PROCEDURE: CT HEAD/BRAIN WO CON INDICATIONS: fall/pain TECHNIQUE: Noncontrast 4.5 mm thick angled axial sections acquired from the foramen magnum to the vertex, with coronal and sagittal reformats. For radiation dose reduction, the following was used: automated exposure control, adjustment of mA and/or kV according to patient size. COMPARISON: None. FINDINGS: Image quality: Diagnostic. CSF spaces: Basal cisterns are patent. Small extra-axial collection on the left frontal convexity measuring up to 5 millimeters in thickness. There is small adjacent subarachnoid hemorrhage. The ventricles are symmetric in size and shape. Brain: There is cerebral volume loss for age, with resultant ventricular and sulcal prominence. There are periventricular and deep white matter chronic small vessel ischemic changes. There is intracranial internal carotid artery atherosclerosis. Skull and face: Calvarium and visualized facial bones appear intact, without suspicious lesions. Sinuses: Visualized sinuses and mastoids are clear. IMPRESSION: Small extra-axial blood along the left frontal convexity measuring 5 millimeters in thickness with small adjacent subarachnoid hemorrhage. Findings discussed with Dr. Hager at 9:41 a.m. On 03/23/2024. Dictated by: Reji Ayala M.D. on 03/23/2024 at 9:38 Approved by: Reji Ayala M.D. on 03/23/2024 at 9:42 CT - cervical spine: Radiologist's Impression: [place] [address] CT Scan Report Signed Patient: Tanika Castillo MR#: [id number] : 1950 Acct:[id number] Age/Sex: 73 / F Date of Service: 03/23/24 Loc: ED Accession Number: [id number] Procedure: CT cervical spine wo con Ordering Provider: Levi Hager MD PROCEDURE: CT CERVICAL SPINE WO CON INDICATIONS: fall/pain TECHNIQUE: Noncontrast 3 mm thick sections acquired from the skull base to the T4 level. Sagittal and coronal reformats were then constructed. For radiation dose reduction, the following was used: automated exposure control, adjustment of mA and/or kV according to patient size. COMPARISON: None. FINDINGS: Image quality: Excellent. Bones: No fractures or dislocations. Mild multilevel degenerative changes of the cervical spine. Diffusely decreased osseous mineralization. Visualized superior ribs are intact. Soft tissues: Prevertebral soft tissues are normal in thickness. No paravertebral hematomas. No apical pneumothoraces. IMPRESSION: No displaced fracture or traumatic subluxation. Dictated by: Reji Ayala M.D. on 03/23/2024 at 9:32 Approved by: Reji Ayala M.D. on 03/23/2024 at 9:34 CT facial bone: Radiologist's Impression: [address] [address] [address] Scan Report Signed Patient: Tanika Castillo MR#: [id number] : 1950 Acct:[id number] Age/Sex: 73 / F Date of Service: 03/23/24 Loc: ED Accession Number: [id number] Procedure: CT facial bones wo con Ordering Provider: Levi Hager MD PROCEDURE: CT FACIAL BONES WO CON INDICATIONS: fall/pain TECHNIQUE: Noncontrast 2.5 mm thick axial images acquired from the mandible through the frontal sinuses, with coronal and sagittal reformatting. For radiation dose reduction, the following was used: automated exposure control, adjustment of mA and/or kV according to patient size. COMPARISON: None. FINDINGS: Image quality: Excellent. Bones and teeth: Orbital maurice are intact. Sinus maurice show no fracture or deformity. Nasal bones and septum are intact. Visualized portions of the mandible demonstrate no fractures or subluxation. Zygomatic arches are intact. Pterygoid plates are intact. Visualized portions of the skull base and auditory canals are intact. Sinuses: Paranasal sinuses are aerated, without fluid levels, mucosal thickening, or mucoceles. Mastoid air cells are aerated. Soft tissues: Subcutaneous emphysema in the left cheek. Mild subcutaneous stranding lateral superior to the left orbit. No enlarged lymph nodes. No soft tissue lacerations or debris. Vascular: Visualized vascular structures appear normal in the absence of contrast. Bony vascular foramina and canals are intact. IMPRESSION: No acute facial fractures. Dictated by: Reji Ayala M.D. on 03/23/2024 at 9:34 Approved by: Reji Ayala M.D. on 03/23/2024 at 9:[address] head: Radiologist's Impression: [address] [address] [address] Scan Report Signed Patient: Tanika Castillo MR#: [id number] : 1950 Acct:[id number] Age/Sex: 73 / F Date of Service: 03/23/24 Loc: ED Accession Number: [id number] Procedure: CT head/brain wo con Ordering Provider: Levi Hager MD PROCEDURE: CT HEAD/BRAIN WO CON INDICATIONS: repeat, check on subdural hematoma TECHNIQUE: Noncontrast 4.5 mm thick angled axial sections acquired from the foramen magnum to the vertex, with coronal and sagittal reformats. For radiation dose reduction, the following was used: automated exposure control, adjustment of mA and/or kV according to patient size. COMPARISON: [facility], CT, CT HEAD/BRAIN WO CON, 03/23/2024, 9:18. FINDINGS: Image quality: Diagnostic. CSF spaces: Basal cisterns are patent. The ventricles are symmetric in size and shape. Brain: There is a small volume of extra-axial hemorrhage seen on the left. This is largely seen as subdural hemorrhage, yet there is an additional focus of subarachnoid hemorrhage seen involving the lateral aspect of the left frontal lobe. Compared to the examination performed earlier in the day, the volume of hemorrhage does not appear increased. No intracranial masses. There is cerebral volume loss for age, with resultant ventricular and sulcal prominence. There are periventricular and deep white matter chronic small vessel ischemic changes. There is intracranial internal carotid artery atherosclerosis. Skull and face: Calvarium and visualized facial bones appear intact, without suspicious lesions. Sinuses: Visualized sinuses and mastoids are clear. IMPRESSION: Stable left-sided extra-axial hemorrhage, without progression compared to the head CT performed earlier in the day. Dictated by: Juan Galdamez M.D. on 03/23/2024 at 12:18 Approved by: Juan Galdamez M.D. on 03/23/2024 at 12:20 Extremity x-ray #1: Radiologist's Impression: [address] [address] XRay Report Signed Patient: Tanika Castillo MR#: [id number] : 1950 Acct:[id number] Age/Sex: 73 / F Date of Service: 03/23/24 Loc: ED Accession Number: [id number] Procedure: XR wrist LT min 3V Ordering Provider: Levi Hager MD PROCEDURE: XR WRIST LT MIN 3V INDICATIONS: fall/pain TECHNIQUE: 4 views of the wrist were acquired. COMPARISON: None. FINDINGS: Bones: No fractures or dislocations. Decreased osseous mineralization. Moderate degenerative changes of the 1st CMC joint. No suspicious bony lesions. Soft tissues: No suspicious soft tissue calcifications. IMPRESSION: No acute bony abnormality. Dictated by: Reji Ayala M.D. on 03/23/2024 at 15:19 Approved by: Reji Ayala M.D. on 03/23/2024 at 15:21 [facility] Narrative Medical decision making narrative: Rapid response called for patient falling in the hallway here at the hospital. Employee nurse was following behind patient in the hallway. Patient caught her toe on the floor causing her to fall. Patient uses a cane to walk. Patient is awake alert oriented x4. She states she was here for outpatient sonography/ultrasound. No blood work was done. Patient is not on any blood thinners. Only complains of injury to left cheek area. No loss of consciousness. Staff immediately at patient's side when she fell. Spinal precautions were conducted, no midline tenderness or step-off of the cervical spine or lumbar spine. Patient was safely lifted with multiple employees/4 employees, transferred to bed and pushed to the emergency department. I was at patient's side with rapid response. Patient denies any neck back shoulder elbow pelvis hips knees or ankle injury/pain. Patient denies any pre event chest pain palpitations dizziness abdominal pain. Did not pass out. After history and exam CT head CT facial bone CT cervical spine, tetanus up-to-date, topical lidocaine, skin repair, patient had witnessed ground level fall. She had mechanical fall meaning she tripped on her toe, no other labs indicated at this time [facility] Medical records reviewed: No recent visit for this complaint Differential considered: Includes but not limited to facial fracture skull fracture intracranial bleed skin laceration Imaging studies independently reviewed: CT head CT face CT cervical spine shows left 5 mm subdural Consult: 11:52 a.m.. Spoke with [facility] Neurosurgery Trauma Dr. Ashton, he has reviewed the films. It they are reassuring. Patient needs repeat CT 4 hours from the 1st 1. If unchanged patient can be discharged home follow up with primary care with supportive care. No transfer needed Treatments: Topical lidocaine Re-evaluations: 9:50 a.m.. [id number] at bedside. Reviewed with them subdural hematoma finding on CT scan imaging. Awaiting to hear from [facility] trauma/Neurosurgery for disposition recommendations. Patient neurologically intact. 2:36 p.m.. Patient tolerated wound closure of the face with sutures very well. I did update them repeat CT is unchanged and reassuring. Likely discharge home. However patient now complains of left wrist pain. X-rays pending. Pain is controlled. She had a headache because she had not been able to eat today. She feels much better now headache nearly gone after eating.. Patient does have some bruising dorsal surface of the wrist. However limited range of motion due to pain now. Exam on arrival to the ER of the wrist was reassuring but now it has changed. Able to collar setter overlock strong radial pulse brisk cap refills with light touch intact thumb and fingers. 4:17 p.m.. Daughter and son are at bedside. Reviewed results with patient and family. Brace for wrist ordered. Likely sprain based on x-ray and exam. Discussion: Appropriate for discharge home. I did review with neurosurgery services at [facility]. CT remains unchanged on repeat exam. Neurologically intact with GCS of 15. Pain is controlled. No headache at time of discharge. Patient states she was just hungry and getting a headache. She ate here and headache resolved. Head injury instructions provided with patient and family. Not toxic at discharge. Return precautions reviewed. Referral for Orthopedics provided. She does have a primary care to follow up with as well. Wound care instructions provided for her laceration Diagnosis: Subdural hematoma facial laceration wrist sprain <Karen Amaya, DO - Last Filed: 03/26/24 07:46> Lab Data Labs: Lab Results 03/23/24 03/23/24 Range/Units 10:10 10:20 WBC 6.5 (4.5-11.0) X10^3/uL RBC 4.72 (4.0-5.2) X10^6/uL Hgb 13.7 (12.0-16.0) g/dL Hct 41.3 (36-46) % MCV 87.5 (80-100) fL MCH 29.0 (26-34) PG MCHC 33.2 (30-36) % RDW 15.3 H (11.6-14.8) % Plt Count 146 L (150-400) X10^3/uL Neut % (Auto) 76.3 H (50-75) % Lymph % (Auto) 16.1 L (25-40) % [place] % (Auto) 6.1 (3-14) % Eos % (Auto) 1.3 L (2-4) % Baso % (Auto) 0.2 (0-2) % Neut # (Auto) 4900 (9181-5958) /uL Lymph # (Auto) 1000 L (9628-2498) /uL Cascade # (Auto) 400 (0-900) /uL Eos # (Auto) 100 (0-450) /uL Baso # (Auto) 0 (0-100) /uL PT 12.0 (9.4-12.5) SECONDS INR 1.0 (0.9-1.3) APTT 34 (25.1-36.5) SECONDS Sodium 139 (137-145) mmol/L Potassium 4.1 (3.4-5.1) mmol/L Chloride 105 (98-107) mmol/L Carbon Dioxide 29 (22-32) mmol/L BUN 29 H (7-17) mg/dL Creatinine 0.80 (0.52-1.04) mg/dL Estimated GFR > 60 (>60) mL/min BUN/Creatinine Ratio 36.3 H (6-22) Glucose 112 H (80-110) mg/dL Calcium 9.4 (8.4-10.2) mg/dL Total Bilirubin 0.7 (0.2-1.3) mg/dL AST 20 (14-36) IU/L ALT 12 (<35) IU/L Alkaline Phosphatase 70 (38-126) U/L Total Protein 7.3 (6.3-8.2) g/dL Albumin 4.5 (3.5-5.0) g/dL Globulin 2.8 (1.7-4.1) g/dL Albumin/Globulin Ratio 1.6 (1.0-2.8) Urine Color Yellow Urine Appearance Clear Urine pH 5.0 (4.5-8.0) Ur Specific [place] 1.010 (1.000-1.035) Urine Protein Negative (Negative) Urine Glucose (UA) Negative (Negative) g/dL Urine Ketones Negative (NEGATIVE) Urine Occult Blood Negative (Negative) Urine Nitrate Negative (Negative) Urine Bilirubin Negative (NEGATIVE) Urine Urobilinogen 0.2 (0.2) E.U./dL Ur Leukocyte Esterase Trace H (NEGATIVE) Urine RBC None seen (0-5/HPF) Urine WBC 1-5/hpf (0-5/HPF) Ur Squamous Epith Cells 0-1 /hpf (0-5/HPF) Urine Bacteria None seen (None) Ur Culture Indicated? Specimen cultured Vol Urine Centrifuged 10ml (spun) [facility] Narrative Medical decision making narrative: Rapid response called for patient falling in the hallway here at the hospital. Employee nurse was following behind patient in the hallway. Patient caught her toe on the floor causing her to fall. Patient uses a cane to walk. Patient is awake alert oriented x4. She states she was here for outpatient sonography/ultrasound. No blood work was done. Patient is not on any blood thinners. Only complains of injury to left cheek area. No loss of consciousness. Staff immediately at patient's side when she fell. Spinal precautions were conducted, no midline tenderness or step-off of the cervical spine or lumbar spine. Patient was safely lifted with multiple employees/4 employees, transferred to bed and pushed to the emergency department. I was at patient's side with rapid response. Patient denies any neck back shoulder elbow pelvis hips knees or ankle injury/pain. Patient denies any pre event chest pain palpitations dizziness abdominal pain. Did not pass out. After history and exam CT head CT facial bone CT cervical spine, tetanus up-to-date, topical lidocaine, skin repair, patient had witnessed ground level fall. She had mechanical fall meaning she tripped on her toe, no other labs indicated at this time [facility] Medical records reviewed: No recent visit for this complaint Differential considered: Includes but not limited to facial fracture skull fracture intracranial bleed skin laceration Imaging studies independently reviewed: CT head CT face CT cervical spine shows left 5 mm subdural Consult: 11:52 a.m.. Spoke with [facility] Neurosurgery Trauma Dr. Ashton, he has reviewed the films. It they are reassuring. Patient needs repeat CT 4 hours from the 1st 1. If unchanged patient can be discharged home follow up with primary care with supportive care. No transfer needed Treatments: Topical lidocaine Re-evaluations: 9:50 a.m.. [id number] at bedside. Reviewed with them subdural hematoma finding on CT scan imaging. Awaiting to hear from [facility] trauma/Neurosurgery for disposition recommendations. Patient neurologically intact. 2:36 p.m.. Patient tolerated wound closure of the face with sutures very well. I did update them repeat CT is unchanged and reassuring. Likely discharge home. However patient now complains of left wrist pain. X-rays pending. Pain is controlled. She had a headache because she had not been able to eat today. She feels much better now headache nearly gone after eating.. Patient does have some bruising dorsal surface of the wrist. However limited range of motion due to pain now. Exam on arrival to the ER of the wrist was reassuring but now it has changed. Able to collar setter overlock strong radial pulse brisk cap refills with light touch intact thumb and fingers. 4:17 p.m.. Daughter and son are at bedside. Reviewed results with patient and family. Brace for wrist ordered. Likely sprain based on x-ray and exam. Discussion: Appropriate for discharge home. I did review with neurosurgery services at [facility]. CT remains unchanged on repeat exam. Neurologically intact with GCS of 15. Pain is controlled. No headache at time of discharge. Patient states she was just hungry and getting a headache. She ate here and headache resolved. Head injury instructions provided with patient and family. Not toxic at discharge. Return precautions reviewed. Referral for Orthopedics provided. She does have a primary care to follow up with as well. Wound care instructions provided for her laceration Diagnosis: Subdural hematoma facial laceration wrist sprain 03/26/24 Dr. Amaya-patient urine culture positive for E coli. Cephalexin 500 mg twice a day for 7 days sent to patient's pharmacy of choice nursing staff to call patient. Discharge Plan Departure Patient Disposition: Home Clinical Impression: Acute subdural hematoma Facial laceration Qualifiers: Encounter type: initial encounter Qualified Code(s): S01.81XA - Laceration without foreign body of other part of head, initial encounter Left wrist sprain Qualifiers: Encounter type: initial encounter Qualified Code(s): S63.502A - Unspecified sprain of left wrist, initial encounter Instructions: DI for Wrist Sprain, DI for Laceration Repair -- Simple, DI for Closed Head Injury, DI for Subdural Hematoma Activity Restrictions/Additional Instructions: [facility] neurosurgery services was contacted today regarding the subdural hematoma/bleed. Repeat CT scan imaging was reassuring. They have been instructed for discharge home, no surgery or prescriptions are required. Continue Tylenol for pain. Baclofen muscle relaxer has been provided for you for any pain you may experience tomorrow. See family doctor this week for re-evaluation. Three stitches on your face need to be removed in 7 days. Please change dressing daily with warm soap and water and apply thin layer of topical antibiotic. Please use provided wrist splint for your wrist sprain until office appointment with Orthopedics. Phone number for the provider has been provided for you to call tomorrow. You should be seen in the next 1 or 2 weeks for re-evaluation of your wrist. Please do read literature regarding your injuries. Please have family with you for the next 2 days for observation and to help for activities of daily living. Prescriptions: New baclofen 20 mg tablet 20 mg PO TID PRN (Reason: pain (scale score 4-6)) Qty: 20 0RF cephalexin 500 mg capsule 500 mg PO BID 7 Days Qty: 14 0RF No Action multivitamin Tablet 1 cap PO QDAY Qty: 0 pantoprazole 40 mg Tablet,Delayed Release (Dr/Ec) 40 mg PO BID furosemide 40 mg Tablet 40 mg PO QAM oxybutynin chloride 15 mg Tablet Extended Release 24hr 15 mg PO QAM sertraline 100 mg Tablet 200 mg PO QAM amlodipine 10 mg Tablet 10 mg PO DAILY levothyroxine 200 mcg Tablet 200 mcg PO QAM bupropion HCl 150 mg Tablet Extended Release 24 Hr 300 mg PO QAM atorvastatin 40 mg tablet 40 mg PO QPM acetaminophen 325 mg tablet 650 mg PO Q6H PRN (Reason: Pain (Scale Score 4-6)) Referrals: Yasmine Shore ARNP [Primary Care Provider] - Mendy Corea MD [Physician] - Stand Alone Forms: Patient Portal/API
[2024-03-23] MEDS: LIDOCAINE/PRILOCAINE 5 GM TOP (09:26)
[2024-03-23 10:22] LABS: Add Manual Diff / Slide Review NO; Basophils Absolute Auto 0 /uL (0-100); Basophils Percent Auto 0.2 % (0-2); Eosinophils Absolute Auto 100 /uL (0-450); Eosinophils Percent Auto 1.3 % (2-4); Hematocrit 41.3 % (36-46); Hemoglobin 13.7 g/dL (12.0-16.0); Lymphocytes Absolute Auto 1000 /uL (1100-4500); Lymphocytes Percent Auto 16.1 % (25-40); Mean Corpuscular HGB Conc 33.2 % (30-36); Mean Corpuscular Volume 87.5 fL (80-100); Monocytes Absolute Auto 400 /uL (0-900); Monocytes Percent Auto 6.1 % (3-14); Neutrophils Absolute Auto 4900 /uL (1500-7000); Neutrophils Percent Auto 76.3 % (50-75); Platelet Count 146 X10^3/uL (150-400); Red Blood Cell Count 4.72 X10^6/uL (4.0-5.2); Red Cell Distribution Width 15.3 % (11.6-14.8); White Blood Cell Count 6.5 X10^3/uL (4.5-11.0)
[2024-03-23 10:30] LABS: Appearance Urine UA CLEAR; Bilirubin Urine UA NEGATIVE (NEGATIVE); Color Urine UA YELLOW; Glucose Urine UA NEGATIVE (Negative); Ketones Urine UA NEGATIVE (NEGATIVE); Leukocyte Esterase Urine UA TRACE (NEGATIVE); Nitrite Urine UA NEGATIVE (Negative); Occult Blood Urine UA NEGATIVE (Negative); Protein Urine UA NEGATIVE (Negative); Urobilinogen Urine UA 0.2 E.U./dL (0.2)
[2024-03-23 10:31] LABS: Urine Volume 10mL (spun)
[2024-03-23 10:35] LABS: Bacteria Urine None Seen; RBC Urine None Seen (0-5/HPF); WBC Urine 1-5/HPF (0-5/HPF)
[2024-03-23 10:36] LABS: Culture Indicated Urine Specimen Cultured; Squamous Epithelial Cell Urine 0-1 /HPF (0-5/HPF)
[2024-03-23 10:37] LABS: PTT Partial Thromboplastin Tim 34 SECONDS (25.1-36.5)
[2024-03-23 10:41] LABS: Alanine Aminotransferase 12 IU/L (<35); Albumin 4.5 g/dL (3.5-5.0); Albumin Globulin Ratio 1.6 (1.0-2.8); Alkaline Phosphatase 70 U/L (38-126); Aspartate Aminotransferase 20 IU/L (14-36); BUN Creatinine Ratio 36.3 (6-22); Bilirubin Total 0.7 mg/dL (0.2-1.3); Blood Urea Nitrogen 29 mg/dL (7-17); Calcium 9.4 mg/dL (8.4-10.2); Carbon Dioxide 29 mmol/L (22-32); Chloride 105 mmol/L (98-107); Estimated Glomerular Filt Rate > 60 mL/min (>60); Globulin 2.8 g/dL (1.7-4.1); Glucose 112 mg/dL (80-110); HEMOLYSIS < 15 (0-50); Potassium 4.1 mmol/L (3.4-5.1); Sodium 139 mmol/L (137-145); Total Protein 7.3 g/dL (6.3-8.2)
--- NOTE | 2024-03-23 13:08 | DI.CT.S_ITS ---
PROCEDURE: CT HEAD/BRAIN WO CON INDICATIONS: repeat, check on subdural hematoma TECHNIQUE: Noncontrast 4.5 mm thick angled axial sections acquired from the foramen magnum to the vertex, with coronal and sagittal reformats. For radiation dose reduction, the following was used: automated exposure control, adjustment of mA and/or kV according to patient size. COMPARISON: [facility], CT, CT HEAD/BRAIN WO CON, 03/23/2024, 9:18. FINDINGS: Image quality: Diagnostic. CSF spaces: Basal cisterns are patent. The ventricles are symmetric in size and shape. Brain: There is a small volume of extra-axial hemorrhage seen on the left. This is largely seen as subdural hemorrhage, yet there is an additional focus of subarachnoid hemorrhage seen involving the lateral aspect of the left frontal lobe. Compared to the examination performed earlier in the day, the volume of hemorrhage does not appear increased. No intracranial masses. There is cerebral volume loss for age, with resultant ventricular and sulcal prominence. There are periventricular and deep white matter chronic small vessel ischemic changes. There is intracranial internal carotid artery atherosclerosis. Skull and face: Calvarium and visualized facial bones appear intact, without suspicious lesions. Sinuses: Visualized sinuses and mastoids are clear. IMPRESSION: Stable left-sided extra-axial hemorrhage, without progression compared to the head CT performed earlier in the day. Dictated by: Juan Galdamez M.D. on 03/23/2024 at 12:18 Approved by: Juan Galdamez M.D. on 03/23/2024 at 12:20
--- NOTE | 2024-03-23 14:18 | DI.RAD.S_ITS ---
PROCEDURE: XR WRIST LT MIN 3V INDICATIONS: fall/pain TECHNIQUE: 4 views of the wrist were acquired. COMPARISON: None. FINDINGS: Bones: No fractures or dislocations. Decreased osseous mineralization. Moderate degenerative changes of the 1st CMC joint. No suspicious bony lesions. Soft tissues: No suspicious soft tissue calcifications. IMPRESSION: No acute bony abnormality. Dictated by: Reji Ayala M.D. on 03/23/2024 at 15:19 Approved by: Reji Ayala M.D. on 03/23/2024 at 15:21
[2024-03-23] MEDS: LIDOCAINE 1% W/EPI 20 ML INJ (14:28)
== END 2024-03-23 16:46 | disposition home or self-care (01) ==
PROVIDERS: Emergency Provider Emergency Medicine; Family Provider Nurse Practitioner; PCP Nurse Practitioner
DX: S06.5X0A Traumatic subdural hemorrhage without loss of consciousness, initial encounter (principal); S63.502A Unspecified sprain of left wrist, initial encounter; S01.81XA Laceration without foreign body of other part of head, initial encounter; W18.30XA Fall on same level, unspecified, initial encounter; Y92.238 Other place in hospital as the place of occurrence of the external cause
CPT/HCPCS: 12011; 36415; 70450; 70486; 72125; 73110; 76642; 77065; 80053; 81001; 85025; 85610; 85730; 87077; 87086; 87186; 99284; G0279

== ENCOUNTER → 2024-12-20 10:49 | Outpatient (CLI) | payer MEDICARE, OTHER, SELFPAY ==
[2023-12-09 13:00] VITALS: BMI 41.2
--- NOTE | 2024-12-20 10:51 | DI.US.S_ITS ---
LIMITED ULTRASOUND OF RIGHT BREAST: 12/20/2024 CLINICAL: 6 month follow-up of cysts. Comparison is made to exams dated: 03/23/2024 ultrasound, 03/23/2024 mammogram, 02/26/2024 mammogram, and 02/07/2023 mammogram - [facility]. Color flow and real-time ultrasound of the right breast 9 o'clock region were performed. Menjivar scale images of the real-time examination were reviewed. There is a stable 0.5 cm x 0.4 cm x 0.3 cm oval complicated cyst in the right breast at 9 o'clock anterior depth 2 cm from the nipple. This oval complicated cyst is hypoechoic. Color flow imaging demonstrates that there is no vascularity present. IMPRESSION: PROBABLY BENIGN The stable 0.5 cm complicated cyst in the right breast is probably benign. A follow-up ultrasound in 6 months is recommended to demonstrate stability. Patient will be due for mammograms at that time. Exam findings were conveyed to the patient. This exam was interpreted at Station ID: [id number]. Electronically Signed By: Timmy Wheat M.D. [facility] [place]/:12/20/2024 11:46:12 letter sent: Followup Recommended ACR BI-RADS Category 3: Probably Benign
== END ==
PROVIDERS: Family Provider Nurse Practitioner; PCP Nurse Practitioner; Referring Provider Nurse Practitioner; Visit Provider Nurse Practitioner
DX: N64.89 Other specified disorders of breast (principal); R92.8 Other abnormal and inconclusive findings on diagnostic imaging of breast; N60.01 Solitary cyst of right breast
CPT/HCPCS: 76642

== ENCOUNTER → 2025-06-20 11:28 | Outpatient (CLI) | payer MEDICARE, OTHER, SELFPAY ==
[2023-12-09 13:00] VITALS: BMI 41.2
--- NOTE | 2025-06-20 11:39 | DI.MG.S_ITS ---
MM diagnostic mammo BI, US breast RT limited: 06/20/2025 BI-RADS: 3 CLINICAL: 75-year old female for bilateral diagnostic mammogram and right diagnostic breast ultrasound that is a follow-up to ultrasound, right on 12/20/2024. Tyrer- Cuzick lifetime risk of 7.5%. Current reported family history of breast cancer: mother and sister. PRIOR EXAMS 12/20/2024, 03/23/2024, 02/26/2024, 02/07/2023. MAMMOGRAPHY TECHNIQUE: 2D and 3D (tomosynthesis) digital mammographic views obtained, with additional images as needed for full coverage. Current study was also evaluated with a Computer Aided Detection (CAD) system. ULTRASOUND TECHNIQUE: Real-time golden scale and color doppler imaging of the area of clinical interest was performed with image documentation. TARGETED Right Breast Ultrasound: Real-time ultrasound exam was performed focused to area of clinical and/or imaging concern. DENSITY B. There are scattered areas of fibroglandular density. MAMMOGRAPHY FINDINGS Right: Lower Inner Quadrant, Anterior depth: Correlating with prior imaging concern, there is a stable focal asymmetry present. Left: No suspicious mass, asymmetry, microcalcification, or other abnormality seen. ULTRASOUND FINDINGS Right: Outer at 9:00, 2 cm from nipple, measuring 0.5 x 0.5 x 0.4 cm - previously measuring (12/20/2024) 0.5 x 0.4 x 0.4 cm: There is a complicated cyst present. IMPRESSION: Right (Asymmetry): Lower Inner Quadrant, Anterior depth * Probably Benign. Right (Complicated Cyst): Outer at 9:00, 2 cm from nipple, measuring 0.5 x 0.5 x 0.4 cm - previously measuring (12/20/2024) 0.5 x 0.4 x 0.4 cm * Probably Benign. Left * No evidence of malignancy. RECOMMENDATIONS Right: Lower Inner Quadrant, Anterior depth * Followup with diagnostic mammography in one year to demonstrate 2 year stability. Right: Outer at 9:00, 2 cm from nipple * Followup with diagnostic ultrasound in one year to demonstrate 2 year stability. Left * Annual screening mammography in one year. COMMENTS: Findings and recommendations were conveyed to the patient during today's evaluation. OVERALL ASSESSMENT CATEGORY BI-RADS-3: Probably Benign. ELECTRONICALLY SIGNED: Irish Ash M.D. on 06/20/2025 at 01:32:12 PM PT Interpreting Station ID: [id number]
== END ==
LOC: MAMMO 11:29
PROVIDERS: Family Provider Nurse Practitioner; PCP Nurse Practitioner; Referring Provider Nurse Practitioner; Visit Provider Nurse Practitioner
DX: N60.01 Solitary cyst of right breast (principal); N64.89 Other specified disorders of breast
CPT/HCPCS: 76642; 77066; G0279